=== PATIENT | female | born 1950 | race African-American/Black ===

== ENCOUNTER 2019-01-09 08:37 | Inpatient (IN) ==
[2019-01-09] MEDS ORDERED: SODIUM CHLORIDE 0.9% 1,000 ML IV STA (09:21)
[2019-01-09] MEDS ORDERED: VANCOMYCIN INJ 1,000 MG in SODIUM CHLORIDE 0.9% 250 ML IV STA (09:39)
[2019-01-09 10:54] LABS: Basophils # 0.1 10*3/uL (0.0-0.2); Basophils % 0.6 % (0.0-0.8); Eosinophils % 0.4 % (0.00-10.9); Hematocrit 34.5 VOL% (35.7-47.0); Hemoglobin 10.7 GM/DL (12.0-16.0); Immature Granulocytes % 1.2 %; Lymphocytes # 1.1 10*3/uL (1.4-4.0); Lymphocytes % 13.1 % (21.3-54.2); Mean Corpuscular Hemoglobin 27 PG (27-34); Mean Corpuscular Volume 86.7 FL (87-102); Mean Platelet Volume 8.6 FL (9.6-12.0); Monocytes # 0.9 10*3/uL (0.11-0.8); Monocytes % 10.8 % (1.7-12.7); Neutrophils # 6.2 10*3/uL (1.4-7.4); Neutrophils % 73.9 % (38.7-73.9); Platelet Count 481 T/CUMM (130-400); Red Blood Count 3.98 MC/CUMM (3.8-5.5); Red Cell Distribution Width 14.6 % (9.3-17.3); White Blood Count 8.4 T/CUMM (4-12)
[2019-01-09 11:08] LABS: INR 1.1; PT Patient Result 11.4 SECS; Partial Thromboplastin Time 30.1 SECS (0-40)
[2019-01-09 11:21] LABS: Apearance,Urine CLEAR (Clear); Bilirubin,Urine Negative (Negative); Blood, Urine Negative (Negative); Glucose,Urine (UA) >=500 mg/dL (Negative); Ketones,Urine 5 mg/dL (Negative); Nitrite,Urine Negative (Negative); Protein,Urine Negative; RBC,Urine 1 /HPF (0-4); Urine Color Yellow (Yellow); Urine Urobilinogen < 2.0 EU/DL (0.2-1.0); WBC,Urine <1 /HPF (0-6)
[2019-01-09 11:44] LABS: Barbiturates Screen,Urine Negative (Negative); Benzodiazepines Screen,Urine Negative (Negative); Cannabinoid Screen,Urine Negative (Negative); Opiate Screen,Urine Negative (Negative); Phencyclidine Screen,Urine Negative (Negative)
[2019-01-09 11:58] LABS: Sedimentation Rate-Westergren 15 MM/HR (0-30)
[2019-01-09 12:07] LABS: Alanine Aminotransferase 24 U/L (13-56); Albumin 2.1 G/DL (3.4-5.0); Alkaline Phosphatase 99 U/L (45-117); Aspartate Amino Transferase 45 U/L (0-37); Bilirubin,Total < 0.39 MG/DL (0.2-1.0); Blood Urea Nitrogen 15 MG/DL (7-18); Calcium 9.4 MG/DL (8.5-10.1); Glucose 131 MG/DL (74-106); Osmolality,Calculated 266.5 MOS/KG (273-304); Potassium 4.2 MMOL/L (3.5-5.1); Sodium 132 MMOL/L (136-145); Total Protein 9.6 G/DL (6.4-8.3); Troponin I < 0.015 NG/ML (0.00-0.045)
[2019-01-09] MEDS ORDERED: DEXTROSE 50% 25 GM/50 ML VIAL IV PRN (12:18)
[2019-01-09] MEDS ORDERED: GLUCAGON 1 MG VIAL IM PRN ×2 (12:18→15:06)
[2019-01-09] MEDS ORDERED: cefTRIAXone 1,000 MG in SYRINGE 1 EACH IV SCH (14:30)
[2019-01-09] MEDS ORDERED: ACETAMINOPHEN 325 MG TABLET PO PRN (15:06)
[2019-01-09] MEDS ORDERED: MORPHINE 4 MG/1 ML VIAL IV PRN (15:06)
[2019-01-09] MEDS ORDERED: DEXTROSE 50% 25 GM/50 ML SYRINGE IV PRN (15:06)
[2019-01-09] MEDS ORDERED: ZALEPLON 5 MG CAPSULE PO PRN (15:06)
[2019-01-09] MEDS: SODIUM CHLORIDE 0.9% 1,000 ML IV SCH (15:21)
[2019-01-09] MEDS: PIPERACILLIN/TAZOBACTAM 3,375 MG in SODIUM CHLORIDE 0.9% 100 ML IV SCH (15:42)
[2019-01-09] MEDS: INSULIN LISPRO 100 UNIT/ML SUBCUT SCH ×2 (15:43→22:46)
[2019-01-09] MEDS: INSULIN REGULAR 100 UNIT/ML SUBCUT SCH ×2 (15:44→21:39)
[2019-01-09 16:18] LABS: Troponin I < 0.015 NG/ML (0.00-0.045)
[2019-01-09] MEDS: ENOXAPARIN 40 MG/0.4 ML SYRINGE SUBCUT SCH (21:39)
[2019-01-09] MEDS: VANCOMYCIN INJ 1,250 MG in SODIUM CHLORIDE 0.9% 250 ML IV SCH (21:39)
[2019-01-09] MEDS: DIVALPROEX 500 MG TABLET PO SCH (21:39)
[2019-01-09] MEDS: HydrOXYzine PAMOATE 50 MG CAPSULE PO SCH (21:39)
[2019-01-09] MEDS ORDERED: VANCOMYCIN INJ 1,000 MG in SODIUM CHLORIDE 0.9% 250 ML IV SCH (22:30)
[2019-01-10] MEDS: PIPERACILLIN/TAZOBACTAM 3,375 MG in SODIUM CHLORIDE 0.9% 100 ML IV SCH ×3 (00:05→21:24)
[2019-01-10 05:19] LABS: Basophils % 0.5 % (0.0-0.8); Eosinophils % 0.5 % (0.00-10.9); Hematocrit 30.4 VOL% (35.7-47.0); Hemoglobin 9.4 GM/DL (12.0-16.0); Immature Granulocytes % 0.8 %; Immature Granulocytes Absolute 0.06 #; Lymphocytes # 1.2 10*3/uL (1.4-4.0); Mean Corpuscular HGB Conc 30.9 GM/DL (32-36); Mean Corpuscular Hemoglobin 26 PG (27-34); Mean Corpuscular Volume 85.4 FL (87-102); Mean Platelet Volume 8.8 FL (9.6-12.0); Monocytes # 0.9 10*3/uL (0.11-0.8); Monocytes % 12.3 % (1.7-12.7); Neutrophils # 5.3 10*3/uL (1.4-7.4); Neutrophils % 69.9 % (38.7-73.9); Platelet Count 412 T/CUMM (130-400); Red Blood Count 3.56 MC/CUMM (3.8-5.5); Red Cell Distribution Width 14.5 % (9.3-17.3); White Blood Count 7.5 T/CUMM (4-12)
[2019-01-10 06:00] LABS: Alanine Aminotransferase 23 U/L (13-56); Albumin 1.5 G/DL (3.4-5.0); Alkaline Phosphatase 89 U/L (45-117); Aspartate Amino Transferase 34 U/L (0-37); Blood Urea Nitrogen 11 MG/DL (7-18); Calcium 8.9 MG/DL (8.5-10.1); Cholesterol 123 MG/DL (50-200); Glucose 128 MG/DL (74-106); HDL Cholesterol 28 MG/DL (40-60); Osmolality,Calculated 270.1 MOS/KG (273-304); Potassium 3.8 MMOL/L (3.5-5.1); Risk Ratio 4.39; Sodium 135 MMOL/L (136-145); Triglycerides 106 MG/DL (2-150); Troponin I < 0.015 NG/ML (0.00-0.045); VLDL CHOLESTEROL 21.2 MG/DL
[2019-01-10] MEDS ORDERED: LEVOTHYROXINE 100 MCG TABLET PO SCH (06:30)
[2019-01-10] MEDS: INSULIN REGULAR 100 UNIT/ML SUBCUT SCH ×4 (07:38→22:48)
[2019-01-10] MEDS ORDERED: LISINOPRIL 20 MG TABLET PO SCH (09:00)
[2019-01-10] MEDS ORDERED: PROPOFOL 200 MG/20 ML VIAL IV ONE (10:57)
[2019-01-10] MEDS ORDERED: fentaNYL 100 MCG/2 ML VIAL ONE (10:57)
[2019-01-10] MEDS ORDERED: SEVOFLURANE 1 UNIT/15 MINUTE INH ONE (10:57)
[2019-01-10] MEDS ORDERED: ONDANSETRON 4 MG/2 ML VIAL ONE (10:57)
[2019-01-10] MEDS ORDERED: PHENYLEPHRINE 1 MG/10 ML SYRINGE IV ONE (10:58)
[2019-01-10] MEDS ORDERED: SODIUM CHLORIDE 0.9% 1,000 ML IV ONE (10:58)
[2019-01-10] MEDS ORDERED: HYDROmorphone 2 MG/1 ML VIAL IV PRN (11:14)
[2019-01-10] MEDS ORDERED: ONDANSETRON 4 MG/2 ML VIAL IV PRN (11:14)
[2019-01-10] MEDS ORDERED: LACTATED RINGERS 1,000 ML IV SCH (11:30)
[2019-01-10] MEDS: VANCOMYCIN INJ 1,250 MG in SODIUM CHLORIDE 0.9% 250 ML IV SCH ×2 (12:47→22:55)
[2019-01-10] MEDS: PANTOPRAZOLE 40 MG TABLET PO SCH (12:59)
[2019-01-10] MEDS: BISACODYL 5 MG TABLET PO SCH (12:59)
[2019-01-10] MEDS: ASPIRIN EC 81 MG TABLET PO SCH (12:59)
[2019-01-10] MEDS: DIVALPROEX 500 MG TABLET PO SCH ×2 (12:59→21:24)
[2019-01-10] MEDS: SODIUM CHLORIDE 0.9% 1,000 ML IV SCH ×2 (18:17→22:52)
[2019-01-10] MEDS: ENOXAPARIN 40 MG/0.4 ML SYRINGE SUBCUT SCH (21:24)
[2019-01-10] MEDS: HydrOXYzine PAMOATE 50 MG CAPSULE PO SCH (21:24)
[2019-01-11 05:06] LABS: Basophils # 0.1 10*3/uL (0.0-0.2); Basophils % 0.6 % (0.0-0.8); Eosinophils # 0.2 10*3/uL (0.0-0.87); Eosinophils % 1.9 % (0.00-10.9); Hematocrit 27.9 VOL% (35.7-47.0); Hemoglobin 8.4 GM/DL (12.0-16.0); Immature Granulocytes % 0.8 %; Immature Granulocytes Absolute 0.06 #; Lymphocytes # 1.1 10*3/uL (1.4-4.0); Lymphocytes % 13.6 % (21.3-54.2); Mean Corpuscular HGB Conc 30.1 GM/DL (32-36); Mean Corpuscular Hemoglobin 27 PG (27-34); Mean Platelet Volume 8.6 FL (9.6-12.0); Monocytes # 1.1 10*3/uL (0.11-0.8); Monocytes % 13.3 % (1.7-12.7); Neutrophils # 5.5 10*3/uL (1.4-7.4); Neutrophils % 69.8 % (38.7-73.9); Platelet Count 365 T/CUMM (130-400); Red Blood Count 3.17 MC/CUMM (3.8-5.5); Red Cell Distribution Width 14.7 % (9.3-17.3); White Blood Count 7.9 T/CUMM (4-12)
[2019-01-11 05:33] LABS: Calcium 8.2 MG/DL (8.5-10.1); Osmolality,Calculated 273.5 MOS/KG (273-304); Potassium 3.7 MMOL/L (3.5-5.1)
[2019-01-11] MEDS: PIPERACILLIN/TAZOBACTAM 3,375 MG in SODIUM CHLORIDE 0.9% 100 ML IV SCH ×3 (05:47→21:22)
[2019-01-11] MEDS: LEVOTHYROXINE 125 MCG TABLET PO SCH (05:57)
[2019-01-11] MEDS ORDERED: TUBERCULIN SKIN TEST 0.1 ML SYRINGE INTRADERM ONE (09:10)
[2019-01-11] MEDS: VANCOMYCIN INJ 1,250 MG in SODIUM CHLORIDE 0.9% 250 ML IV SCH ×2 (09:39→20:14)
[2019-01-11] MEDS: ASPIRIN EC 81 MG TABLET PO SCH (09:40)
[2019-01-11] MEDS: INSULIN REGULAR 100 UNIT/ML SUBCUT SCH ×4 (09:41→20:46)
[2019-01-11] MEDS: BISACODYL 5 MG TABLET PO SCH (09:41)
[2019-01-11] MEDS: PANTOPRAZOLE 40 MG TABLET PO SCH (09:41)
[2019-01-11] MEDS: DIVALPROEX 500 MG TABLET PO SCH ×2 (09:41→20:14)
[2019-01-11] MEDS: CHLORHEXIDINE 4% SOLN 118 ML BOTTLE TOP SCH (13:04)
[2019-01-11] MEDS: SODIUM HYPOCHLORITE 0.25% IRRIG 473 ML BOTTLE TOP SCH (13:04)
[2019-01-11] MEDS: ZINC OXIDE PASTE 113 GM TUBE TOP SCH ×2 (15:42→20:15)
[2019-01-11 18:15] LABS: Hematocrit 26.9 VOL% (35.7-47.0); Hemoglobin 8.3 GM/DL (12.0-16.0)
[2019-01-11] MEDS: ENOXAPARIN 40 MG/0.4 ML SYRINGE SUBCUT SCH (20:13)
[2019-01-11] MEDS: HydrOXYzine PAMOATE 50 MG CAPSULE PO SCH (20:13)
[2019-01-12] MEDS: SODIUM CHLORIDE 0.9% 1,000 ML IV SCH ×2 (03:00→05:00)
[2019-01-12] MEDS: PIPERACILLIN/TAZOBACTAM 3,375 MG in SODIUM CHLORIDE 0.9% 100 ML IV SCH (04:30)
[2019-01-12 05:34] LABS: Basophils # 0.1 10*3/uL (0.0-0.2); Basophils % 0.9 % (0.0-0.8); Eosinophils # 0.2 10*3/uL (0.0-0.87); Eosinophils % 2.5 % (0.00-10.9); Hematocrit 26.4 VOL% (35.7-47.0); Hemoglobin 8.1 GM/DL (12.0-16.0); Immature Granulocytes % 0.9 %; Immature Granulocytes Absolute 0.06 #; Lymphocytes # 1.2 10*3/uL (1.4-4.0); Lymphocytes % 17.6 % (21.3-54.2); Mean Corpuscular HGB Conc 30.7 GM/DL (32-36); Mean Corpuscular Hemoglobin 27 PG (27-34); Mean Corpuscular Volume 87.1 FL (87-102); Mean Platelet Volume 8.5 FL (9.6-12.0); Monocytes # 0.9 10*3/uL (0.11-0.8); Monocytes % 12.3 % (1.7-12.7); Neutrophils # 4.5 10*3/uL (1.4-7.4); Neutrophils % 65.8 % (38.7-73.9); Platelet Count 360 T/CUMM (130-400); Red Blood Count 3.03 MC/CUMM (3.8-5.5); Red Cell Distribution Width 14.6 % (9.3-17.3); White Blood Count 6.9 T/CUMM (4-12)
[2019-01-12 05:58] LABS: Calcium 8.3 MG/DL (8.5-10.1); Osmolality,Calculated 277.4 MOS/KG (273-304); Potassium 3.4 MMOL/L (3.5-5.1)
[2019-01-12] MEDS: LEVOTHYROXINE 125 MCG TABLET PO SCH (06:06)
[2019-01-12] MEDS: INSULIN REGULAR 100 UNIT/ML SUBCUT SCH ×3 (07:52→17:08)
[2019-01-12] MEDS ORDERED: SODIUM CHLORIDE 0.9% 1,000 ML IV PRN (08:57)
[2019-01-12] MEDS: cephALEXin 500 MG CAPSULE PO SCH ×2 (09:30→14:26)
[2019-01-12] MEDS: BISACODYL 5 MG TABLET PO SCH (09:30)
[2019-01-12] MEDS: PANTOPRAZOLE 40 MG TABLET PO SCH (09:30)
[2019-01-12] MEDS: DIVALPROEX 500 MG TABLET PO SCH (09:30)
[2019-01-12] MEDS: ASPIRIN EC 81 MG TABLET PO SCH (09:30)
[2019-01-12] MEDS ORDERED: LISINOPRIL 20 MG TABLET PO SCH (10:00)
[2019-01-12] MEDS ORDERED: POTASSIUM CHLORIDE 20 MEQ TABLET PO ONE (10:00)
[2019-01-12] MEDS: SODIUM HYPOCHLORITE 0.25% IRRIG 473 ML BOTTLE TOP SCH (10:26)
[2019-01-12] MEDS: ZINC OXIDE PASTE 113 GM TUBE TOP SCH (10:26)
[2019-01-12] MEDS: CHLORHEXIDINE 4% SOLN 118 ML BOTTLE TOP SCH (10:26)
[2019-01-12 15:42] VITALS: BP 155/77
== END 2019-01-12 18:04 | DRG 617 ==
LOC: EDBD → EDUNIT# → N.ED 08:37 → N.EDINP 12:36 → N.2E 15:06
PROVIDERS: ADMIT Internal Medicine; ATTEND Internal Medicine

== ENCOUNTER 2019-02-20 17:32 | Inpatient (IN) ==
[2019-02-20] MEDS ORDERED: ALBUTEROL/IPRATROPIUM 3 ML NEB RESP TX STA (18:06)
[2019-02-20] MEDS ORDERED: FUROSEMIDE 40 MG/4 ML VIAL IV STA (18:06)
[2019-02-20 18:46] LABS: Basophils # 0.1 10*3/uL (0.0-0.2); Basophils % 0.8 % (0.0-0.8); Hematocrit 36.3 VOL% (35.7-47.0); Hemoglobin 11.1 GM/DL (12.0-16.0); Immature Granulocytes % 4.5 %; Immature Granulocytes Absolute 0.35 #; Lymphocytes # 0.7 10*3/uL (1.4-4.0); Lymphocytes % 8.4 % (21.3-54.2); Mean Corpuscular HGB Conc 30.6 GM/DL (32-36); Mean Corpuscular Volume 86.6 FL (87-102); Mean Platelet Volume 8.8 FL (9.6-12.0); Monocytes % 5.6 % (1.7-12.7); Neutrophils % 80.7 % (38.7-73.9); Platelet Count 571 T/CUMM (130-400); Red Blood Count 4.19 MC/CUMM (3.8-5.5); Red Cell Distribution Width 19.5 % (9.3-17.3); White Blood Count 7.7 T/CUMM (4-12)
[2019-02-20 18:55] LABS: PT Patient Result 11.3 SECS
[2019-02-20 18:58] LABS: Apearance,Urine CLEAR (Clear); Bilirubin,Urine Negative (Negative); Blood, Urine Small mg/dL (Negative); Glucose,Urine (UA) >=500 mg/dL (Negative); Hyaline Casts,Urine 1 /LPF (0-3); Ketones,Urine 20 mg/dL (Negative); Nitrite,Urine Negative (Negative); Protein,Urine Negative; RBC,Urine 21 /HPF (0-4); Squamous Epithelial Cell,Urine Occasional /HPF (0-10); Urine Color Yellow (Yellow); Urine Specific Gravity 1.028 (1.001-1.035); Urine Urobilinogen < 2.0 EU/DL (0.2-1.0); WBC,Urine 3 /HPF (0-6)
[2019-02-20 19:06] LABS: Barbiturates Screen,Urine Negative (Negative); Benzodiazepines Screen,Urine Negative (Negative); Cannabinoid Screen,Urine Negative (Negative); Opiate Screen,Urine Negative (Negative); Phencyclidine Screen,Urine Negative (Negative)
[2019-02-20 19:15] LABS: Alanine Aminotransferase 12 U/L (13-56); Albumin 1.7 G/DL (3.4-5.0); Alkaline Phosphatase 220 U/L (45-117); Aspartate Amino Transferase 24 U/L (0-37); Blood Urea Nitrogen 18 MG/DL (7-18); CKMB % 2.6 %; Calcium 9.1 MG/DL (8.5-10.1); Glucose 235 MG/DL (74-106); Osmolality,Calculated 282.8 MOS/KG (273-304); Prolactin 9.3 NG/ML; Total Protein 8.8 G/DL (6.4-8.3); Troponin I < 0.015 NG/ML (0.00-0.045)
[2019-02-20] MEDS: PIPERACILLIN/TAZOBACTAM 3,375 MG in SODIUM CHLORIDE 0.9% 100 ML IV SCH (19:50)
[2019-02-20 20:03] LABS: Sedimentation Rate-Westergren 13 MM/HR (0-30)
[2019-02-20 20:12] LABS: Lymphocytes 16 % (20-55); Segmented Neutrophils 80 % (50-85); Total Cells Counted 100
[2019-02-20 20:15] LABS: Platelet Estimate Adequate; Platelet Satellitism Few
[2019-02-20] MEDS ORDERED: GLUCAGON 1 MG VIAL IM PRN (20:39)
[2019-02-20] MEDS ORDERED: DEXTROSE 50% 25 GM/50 ML VIAL IV PRN (20:39)
[2019-02-20 20:42] LABS: Allen Test Positive
[2019-02-20 20:44] LABS: ABG Base Excess 1.2 MMOL/L (-2.5-2.5); ABG HCO3 25.2 MMOL/L (20-26); ABG PCO2 33.3 MM HG (35-48); ABG PH 7.472 (7.35-7.45); ABG PO2 49.7 MM HG (80-95)
[2019-02-20] MEDS ORDERED: LACTULOSE 20 GM/30 ML UDCUP PO PRN (20:44)
[2019-02-20] MEDS ORDERED: NICOTINE 21 MG/24 HR PATCH TRANSDERM PRN (20:44)
[2019-02-20] MEDS ORDERED: ONDANSETRON 4 MG/2 ML VIAL IV PRN (20:44)
[2019-02-20] MEDS ORDERED: LACTATED RINGERS 1,000 ML IV ONE (20:44)
[2019-02-20] MEDS ORDERED: guaiFENesin/DM ER 600-30 MG TABLET PO PRN (20:44)
[2019-02-20] MEDS ORDERED: MORPHINE 4 MG/1 ML VIAL IV PRN (20:44)
[2019-02-20] MEDS ORDERED: diphenhydrAMINE CAP 25 MG CAPSULE PO PRN (20:44)
[2019-02-20] MEDS ORDERED: VANCOMYCIN INJ 1,000 MG in SODIUM CHLORIDE 0.9% 250 ML IV SCH (21:00)
[2019-02-21] MEDS: VANCOMYCIN INJ 1,000 MG in SODIUM CHLORIDE 0.9% 250 ML IV SCH ×2 (00:20→11:09)
[2019-02-21] MEDS: INSULIN REGULAR 100 UNIT/ML SUBCUT SCH ×4 (00:24→17:53)
[2019-02-21] MEDS: ALBUTEROL/IPRATROPIUM 3 ML NEB RESP TX SCH ×4 (01:06→20:44)
[2019-02-21] MEDS ORDERED: ALBUTEROL/IPRATROPIUM 3 ML NEB RESP TX ONE (01:56)
[2019-02-21] MEDS ORDERED: methylPREDNISolone SOD SUC 125 MG/2 ML VIAL IV ONE (01:57)
[2019-02-21 03:58] LABS: ABG HCO3 24.8 MMOL/L (20-26); ABG PH 7.456 (7.35-7.45); ABG PO2 63.9 MM HG (80-95); ABG TCO2 25.9 MMOL/L (23-27); Allen Test Positive; Pt O2 Delivery Device Other
[2019-02-21] MEDS ORDERED: PIPERACILLIN/TAZOBACTAM 3,375 MG in SODIUM CHLORIDE 0.9% 100 ML IV SCH (04:00)
[2019-02-21] MEDS: PIPERACILLIN/TAZOBACTAM 3,375 MG in SODIUM CHLORIDE 0.9% 100 ML IV SCH ×3 (04:43→20:43)
[2019-02-21 05:30] LABS: Basophils # 0.1 10*3/uL (0.0-0.2); Hematocrit 28.7 VOL% (35.7-47.0); Hemoglobin 9.2 GM/DL (12.0-16.0); Immature Granulocytes % 1.3 %; Immature Granulocytes Absolute 0.09 #; Lymphocytes # 0.6 10*3/uL (1.4-4.0); Lymphocytes % 8.6 % (21.3-54.2); Mean Corpuscular HGB Conc 32.1 GM/DL (32-36); Mean Corpuscular Volume 84.7 FL (87-102); Mean Platelet Volume 9.1 FL (9.6-12.0); Monocytes % 6.2 % (1.7-12.7); Neutrophils % 82.9 % (38.7-73.9); Platelet Count 480 T/CUMM (130-400); Red Blood Count 3.39 MC/CUMM (3.8-5.5); Red Cell Distribution Width 19.1 % (9.3-17.3); White Blood Count 6.8 T/CUMM (4-12)
[2019-02-21 05:51] LABS: Albumin 1.2 G/DL (3.4-5.0); Bilirubin,Total 0.5 MG/DL (0.2-1.0); Calcium 8.8 MG/DL (8.5-10.1); Osmolality,Calculated 283.3 MOS/KG (273-304); Total Protein 7.2 G/DL (6.4-8.3)
[2019-02-21 06:14] LABS: Anisocytosis 2+; Hypochromasia 1+; Lymphocytes 11 % (20-55); Segmented Neutrophils 83 % (50-85); Total Cells Counted 100
[2019-02-21 06:15] LABS: Burr Cells 1+; Microcytosis 1+; Ovalocytes Slight; Platelet Estimate Increased
[2019-02-21] MEDS: LEVOTHYROXINE 125 MCG TABLET PO SCH (06:24)
[2019-02-21] MEDS ORDERED: PANTOPRAZOLE 40 MG TABLET PO SCH (09:00)
[2019-02-21] MEDS: PANTOPRAZOLE 40 MG VIAL IV SCH (09:35)
[2019-02-21 09:37] LABS: ABG Base Excess -3.8 MMOL/L (-2.5-2.5); ABG HCO3 21.1 MMOL/L (20-26); ABG Oxygen Saturation 92.5 % (95-100); ABG PCO2 29.5 MM HG (35-48); ABG PH 7.431 (7.35-7.45); ABG PO2 68.7 MM HG (80-95); ABG TCO2 18.1 MMOL/L (23-27)
[2019-02-21] MEDS: SODIUM CHLORIDE 0.9% 1,000 ML IV SCH ×3 (11:09→20:46)
[2019-02-21] MEDS: ENOXAPARIN 40 MG/0.4 ML SYRINGE SUBCUT SCH (14:04)
[2019-02-21] MEDS: methylPREDNISolone SOD SUC 40 MG/1 ML VIAL IV SCH ×2 (14:04→20:53)
[2019-02-22] MEDS: INSULIN REGULAR 100 UNIT/ML SUBCUT SCH ×4 (00:40→17:41)
[2019-02-22] MEDS: VANCOMYCIN INJ 1,000 MG in SODIUM CHLORIDE 0.9% 250 ML IV SCH (00:59)
[2019-02-22] MEDS: ALBUTEROL/IPRATROPIUM 3 ML NEB RESP TX SCH ×4 (01:53→19:09)
[2019-02-22] MEDS: PIPERACILLIN/TAZOBACTAM 3,375 MG in SODIUM CHLORIDE 0.9% 100 ML IV SCH ×2 (04:09→16:46)
[2019-02-22] MEDS: methylPREDNISolone SOD SUC 40 MG/1 ML VIAL IV SCH ×3 (04:10→21:29)
[2019-02-22 05:29] LABS: Calcium 9.1 MG/DL (8.5-10.1); Osmolality,Calculated 301.1 MOS/KG (273-304)
[2019-02-22 05:32] LABS: Basophils # 0.1 10*3/uL (0.0-0.2); Basophils % 0.8 % (0.0-0.8); Hematocrit 25.8 VOL% (35.7-47.0); Hemoglobin 7.8 GM/DL (12.0-16.0); Immature Granulocytes % 4.3 %; Lymphocytes # 1.1 10*3/uL (1.4-4.0); Lymphocytes % 7.8 % (21.3-54.2); Mean Corpuscular HGB Conc 30.2 GM/DL (32-36); Mean Corpuscular Volume 88.7 FL (87-102); Mean Platelet Volume 8.9 FL (9.6-12.0); Monocytes % 6.2 % (1.7-12.7); Neutrophils % 80.9 % (38.7-73.9); Platelet Count 517 T/CUMM (130-400); Red Blood Count 2.91 MC/CUMM (3.8-5.5); Red Cell Distribution Width 20.7 % (9.3-17.3); White Blood Count 13.8 T/CUMM (4-12)
[2019-02-22 06:10] LABS: Band Neutrophils 2 % (0-10); Hypochromasia 1+; Lymphocytes 6 % (20-55); Myelocytes 3 %; Platelet Estimate Adequate; Segmented Neutrophils 85 % (50-85); Total Cells Counted 100
[2019-02-22 06:11] LABS: Microcytosis Slight
[2019-02-22] MEDS: LEVOTHYROXINE 125 MCG TABLET PO SCH (06:30)
[2019-02-22] MEDS: levETIRAcetam 500 MG TABLET PO SCH ×2 (09:13→21:29)
[2019-02-22] MEDS: ASPIRIN EC 81 MG TABLET PO SCH (09:14)
[2019-02-22] MEDS: POTASSIUM CHLORIDE RIDER 10 MEQ in PREMIX 1 EACH IV PRN ×3 (09:14→21:34)
[2019-02-22] MEDS: PANTOPRAZOLE 40 MG VIAL IV SCH (09:14)
[2019-02-22] MEDS: LISINOPRIL 20 MG TABLET PO SCH (09:14)
[2019-02-22 11:04] LABS: Basophils % 0.1 % (0.0-0.8); Immature Granulocytes % 8.3 %; Immature Granulocytes Absolute 1.35 #; Lymphocytes # 1.1 10*3/uL (1.4-4.0); Lymphocytes % 6.8 % (21.3-54.2); Mean Corpuscular HGB Conc 27.9 GM/DL (32-36); Mean Corpuscular Volume 95.7 FL (87-102); Mean Platelet Volume 9.3 FL (9.6-12.0); Monocytes % 6.6 % (1.7-12.7); Neutrophils % 78.2 % (38.7-73.9); Platelet Count 430 T/CUMM (130-400); Red Blood Count 3.03 MC/CUMM (3.8-5.5); Red Cell Distribution Width 21.5 % (9.3-17.3); White Blood Count 16.2 T/CUMM (4-12)
[2019-02-22 11:06] LABS: Hemoglobin 8.1 GM/DL (12.0-16.0)
[2019-02-22 11:36] LABS: Band Neutrophils 4 % (0-10); Lymphocytes 6 % (20-55); Myelocytes 1 %; Segmented Neutrophils 85 % (50-85); Total Cells Counted 100
[2019-02-22 11:37] LABS: Hypochromasia 1+; Platelet Estimate Adequate
[2019-02-22 11:38] LABS: Folate 15.2 NG/ML (5.4-24.0); Microcytosis Slight; Vitamin B12 1321 PG/ML (211-911)
[2019-02-22 12:35] LABS: Sedimentation Rate-Westergren 87 MM/HR (0-30)
[2019-02-22] MEDS: ENOXAPARIN 40 MG/0.4 ML SYRINGE SUBCUT SCH (13:31)
[2019-02-22] MEDS: ACETAMINOPHEN 325 MG TABLET PO PRN (21:35)
[2019-02-23] MEDS: ALBUTEROL/IPRATROPIUM 3 ML NEB RESP TX SCH ×4 (00:05→20:29)
[2019-02-23] MEDS: PIPERACILLIN/TAZOBACTAM 3,375 MG in SODIUM CHLORIDE 0.9% 100 ML IV SCH ×3 (00:22→16:49)
[2019-02-23] MEDS: POTASSIUM CHLORIDE RIDER 10 MEQ in PREMIX 1 EACH IV PRN (00:27)
[2019-02-23] MEDS: INSULIN REGULAR 100 UNIT/ML SUBCUT SCH ×4 (01:33→18:13)
[2019-02-23] MEDS: methylPREDNISolone SOD SUC 40 MG/1 ML VIAL IV SCH ×2 (04:19→21:51)
[2019-02-23] MEDS: LEVOTHYROXINE 125 MCG TABLET PO SCH (05:54)
[2019-02-23 07:30] LABS: Basophils # 0.1 10*3/uL (0.0-0.2); Basophils % 0.7 % (0.0-0.8); Hematocrit 26.9 VOL% (35.7-47.0); Hemoglobin 7.9 GM/DL (12.0-16.0); Immature Granulocytes % 8.9 %; Immature Granulocytes Absolute 1.68 #; Lymphocytes % 5.5 % (21.3-54.2); Mean Corpuscular HGB Conc 29.4 GM/DL (32-36); Mean Corpuscular Volume 91.5 FL (87-102); Mean Platelet Volume 8.7 FL (9.6-12.0); Monocytes % 4.8 % (1.7-12.7); NRBC # 0.02 10*3/uL; Neutrophils % 80.1 % (38.7-73.9); Platelet Count 486 T/CUMM (130-400); Red Blood Count 2.94 MC/CUMM (3.8-5.5); Red Cell Distribution Width 22.4 % (9.3-17.3); White Blood Count 18.9 T/CUMM (4-12)
[2019-02-23 07:44] LABS: Calcium 8.5 MG/DL (8.5-10.1); Osmolality,Calculated 323.9 MOS/KG (273-304)
[2019-02-23 08:18] LABS: Band Neutrophils 10 % (0-10); Lymphocytes 5 % (20-55); Myelocytes 4 %; Platelet Estimate Adequate; Segmented Neutrophils 77 % (50-85); Total Cells Counted 100
[2019-02-23 08:19] LABS: Hypochromasia 1+; Microcytosis Slight
[2019-02-23 09:40] LABS: Hemoglobin A1 (Alkaline) 97.7 % (96.5-98.5); Hemoglobin A2 (Alkaline) 2.3 % (1.5-3.5)
[2019-02-23] MEDS: SODIUM CHLORIDE 0.9% 1,000 ML IV SCH ×2 (09:55→09:56)
[2019-02-23] MEDS: ASPIRIN EC 81 MG TABLET PO SCH (10:03)
[2019-02-23] MEDS: LISINOPRIL 20 MG TABLET PO SCH (10:03)
[2019-02-23] MEDS: PANTOPRAZOLE 40 MG VIAL IV SCH (10:12)
[2019-02-23] MEDS: ENOXAPARIN 40 MG/0.4 ML SYRINGE SUBCUT SCH (12:47)
[2019-02-23 22:03] LABS: Allen Test Positive; Pt O2 Delivery Device Other
[2019-02-23 22:04] LABS: ABG Base Excess -16.6 MMOL/L (-2.5-2.5); ABG HCO3 7.6 MMOL/L (20-26); ABG Oxygen Saturation 94.6 % (95-100); ABG PH 7.324 (7.35-7.45); ABG PO2 81.7 MM HG (80-95)
[2019-02-23 22:07] LABS: ABG PCO2 14.9 MM HG (35-48)
[2019-02-24] MEDS: INSULIN REGULAR 100 UNIT/ML SUBCUT SCH ×5 (00:28→23:42)
[2019-02-24] MEDS: PIPERACILLIN/TAZOBACTAM 3,375 MG in SODIUM CHLORIDE 0.9% 100 ML IV SCH ×2 (00:47→09:31)
[2019-02-24] MEDS: ALBUTEROL/IPRATROPIUM 3 ML NEB RESP TX SCH ×4 (01:35→19:37)
[2019-02-24 03:37] LABS: ABG Base Excess -14.4 MMOL/L (-2.5-2.5); ABG HCO3 9.8 MMOL/L (20-26); ABG Oxygen Saturation 95.7 % (95-100); ABG PH 7.341 (7.35-7.45); ABG PO2 87.4 MM HG (80-95); ABG TCO2 10.3 MMOL/L (23-27); Allen Test Positive; Pt O2 Delivery Device Other
[2019-02-24 03:38] LABS: ABG PCO2 18.5 MM HG (35-48)
[2019-02-24] MEDS ORDERED: ACETAMINOPHEN 650 MG SUPP RECTAL ONE (04:49)
[2019-02-24 05:08] LABS: Basophils # 0.1 10*3/uL (0.0-0.2); Basophils % 0.8 % (0.0-0.8); Hematocrit 26.3 VOL% (35.7-47.0); Hemoglobin 7.9 GM/DL (12.0-16.0); Immature Granulocytes % 8.5 %; Immature Granulocytes Absolute 1.48 #; Lymphocytes % 5.7 % (21.3-54.2); Mean Corpuscular Volume 90.4 FL (87-102); Mean Platelet Volume 8.7 FL (9.6-12.0); Monocytes % 5.8 % (1.7-12.7); NRBC # 0.02 10*3/uL; Neutrophils % 79.2 % (38.7-73.9); Platelet Count 469 T/CUMM (130-400); Red Blood Count 2.91 MC/CUMM (3.8-5.5); Red Cell Distribution Width 23.6 % (9.3-17.3); White Blood Count 17.4 T/CUMM (4-12)
[2019-02-24 05:33] LABS: Albumin 1.5 G/DL (3.4-5.0); Anisocytosis 1+; Band Neutrophils 11 % (0-10); Bilirubin,Total 0.4 MG/DL (0.2-1.0); Calcium 8.4 MG/DL (8.5-10.1); Lymphocytes 6 % (20-55); Osmolality,Calculated 339.6 MOS/KG (273-304); Platelet Estimate Normal; Segmented Neutrophils 81 % (50-85); Total Cells Counted 100
[2019-02-24 05:33] LABS: INR 1.1; PT Patient Result 11.9 SECS
[2019-02-24 05:34] LABS: Macrocytosis 1+; Target Cells Few
[2019-02-24] MEDS: LEVOTHYROXINE 125 MCG TABLET PO SCH (07:20)
[2019-02-24] MEDS ORDERED: LACTATED RINGERS 500 ML IV SCH (08:00)
[2019-02-24] MEDS ORDERED: SODIUM CHLORIDE 0.45% 1,000 ML IV ONE ×2 (08:29→08:30)
[2019-02-24 08:42] LABS: Albumin 1.3 G/DL (3.4-5.0); Bilirubin,Total 0.5 MG/DL (0.2-1.0); Calcium 8.8 MG/DL (8.5-10.1); Osmolality,Calculated 346.2 MOS/KG (273-304); Total Protein 6.5 G/DL (6.4-8.3)
[2019-02-24] MEDS ORDERED: SODIUM BICARB INJ 100 MEQ in DEXTROSE 5% 1,000 ML IV SCH ×2 (09:00→17:00)
[2019-02-24] MEDS: methylPREDNISolone SOD SUC 40 MG/1 ML VIAL IV SCH ×2 (09:30→21:00)
[2019-02-24] MEDS: PANTOPRAZOLE 40 MG VIAL IV SCH (09:30)
[2019-02-24] MEDS: LISINOPRIL 20 MG TABLET PO SCH (09:48)
[2019-02-24] MEDS: SODIUM CHLORIDE 0.45% 1,000 ML IV SCH (09:49)
[2019-02-24] MEDS: ASPIRIN EC 81 MG TABLET PO SCH (09:51)
[2019-02-24] MEDS: LEVOFLOXACIN INJ 750 MG in PREMIX 1 EACH IV SCH (12:45)
[2019-02-24 12:53] LABS: Calcium 8.2 MG/DL (8.5-10.1); Osmolality,Calculated 339.8 MOS/KG (273-304)
[2019-02-24] MEDS: POTASSIUM CHLORIDE RIDER 10 MEQ in PREMIX 1 EACH IV PRN ×3 (13:04→16:20)
[2019-02-24 16:58] LABS: Calcium 8.1 MG/DL (8.5-10.1); Osmolality,Calculated 338.9 MOS/KG (273-304)
[2019-02-24 20:45] LABS: Calcium 8.3 MG/DL (8.5-10.1); Osmolality,Calculated 340.8 MOS/KG (273-304)
[2019-02-24 20:48] LABS: Apearance,Urine Slightly Hazy (Clear); Bilirubin,Urine Negative (Negative); Blood, Urine Large mg/dL (Negative); Glucose,Urine (UA) >=500 mg/dL (Negative); Ketones,Urine 80 mg/dL (Negative); Nitrite,Urine Negative (Negative); Protein,Urine 30 MG/DL; RBC,Urine 716 /HPF (0-4); Squamous Epithelial Cell,Urine Occasional /HPF (0-10); Urine Color Yellow (Yellow); Urine Specific Gravity 1.029 (1.001-1.035); Urine Urobilinogen < 2.0 EU/DL (0.2-1.0); WBC,Urine 28 /HPF (0-6)
[2019-02-24] MEDS: SODIUM BICARB INJ 150 MEQ in DEXTROSE 5% 850 ML IV SCH (20:53)
[2019-02-25] MEDS: ALBUTEROL/IPRATROPIUM 3 ML NEB RESP TX SCH ×4 (00:29→19:05)
[2019-02-25 01:16] LABS: Calcium 8.1 MG/DL (8.5-10.1); Osmolality,Calculated 341.8 MOS/KG (273-304)
[2019-02-25] MEDS: POTASSIUM CHLORIDE RIDER 10 MEQ in PREMIX 1 EACH IV PRN ×4 (02:48→06:10)
[2019-02-25 04:44] LABS: Basophils % 0.3 % (0.0-0.8); Hematocrit 22.5 VOL% (35.7-47.0); Immature Granulocytes % 4.4 %; Immature Granulocytes Absolute 0.59 #; Lymphocytes # 1.3 10*3/uL (1.4-4.0); Lymphocytes % 9.3 % (21.3-54.2); Mean Corpuscular HGB Conc 31.1 GM/DL (32-36); Mean Corpuscular Volume 86.5 FL (87-102); Mean Platelet Volume 8.5 FL (9.6-12.0); Monocytes % 5.4 % (1.7-12.7); Neutrophils % 80.6 % (38.7-73.9); Platelet Count 351 T/CUMM (130-400); Red Cell Distribution Width 23.2 % (9.3-17.3); White Blood Count 13.5 T/CUMM (4-12)
[2019-02-25] MEDS: SODIUM BICARB INJ 150 MEQ in DEXTROSE 5% 850 ML IV SCH (05:04)
[2019-02-25] MEDS: INSULIN REGULAR 100 UNIT/ML SUBCUT SCH ×3 (05:19→18:32)
[2019-02-25 05:20] LABS: Band Neutrophils 1 % (0-10); Hypochromasia 1+; Lymphocytes 8 % (20-55); Platelet Estimate Adequate; Segmented Neutrophils 84 % (50-85); Total Cells Counted 100
[2019-02-25] MEDS: LEVOTHYROXINE 125 MCG TABLET PO SCH (05:20)
[2019-02-25 06:13] LABS: Alanine Aminotransferase 12 U/L (13-56); Albumin 1.2 G/DL (3.4-5.0); Alkaline Phosphatase 133 U/L (45-117); Aspartate Amino Transferase 17 U/L (0-37); Bilirubin,Total < 0.39 MG/DL (0.2-1.0); Blood Urea Nitrogen 30 MG/DL (7-18); Glucose 210 MG/DL (74-106); Osmolality,Calculated 338.8 MOS/KG (273-304); Total Protein 5.8 G/DL (6.4-8.3)
[2019-02-25 06:27] LABS: Calcium 7.9 MG/DL (8.5-10.1)
[2019-02-25 08:44] LABS: Calcium 8.1 MG/DL (8.5-10.1); Osmolality,Calculated 335.9 MOS/KG (273-304)
[2019-02-25] MEDS: DEXTROSE 5% 1,000 ML IV SCH ×2 (09:00→17:51)
[2019-02-25] MEDS: PANTOPRAZOLE 40 MG VIAL IV SCH (09:02)
[2019-02-25] MEDS: ENOXAPARIN 40 MG/0.4 ML SYRINGE SUBCUT SCH (09:22)
[2019-02-25] MEDS: ASPIRIN CHEW 81 MG TABLET PO SCH (09:23)
[2019-02-25] MEDS: LEVOFLOXACIN INJ 750 MG in PREMIX 1 EACH IV SCH (12:47)
[2019-02-25] MEDS ORDERED: SODIUM CHLORIDE 0.9% 1,000 ML IV PRN (15:14)
[2019-02-26] MEDS: ACETAMINOPHEN 325 MG TABLET PO PRN ×3 (00:45→08:54)
[2019-02-26] MEDS: ALBUTEROL/IPRATROPIUM 3 ML NEB RESP TX SCH ×4 (00:50→13:24)
[2019-02-26] MEDS: INSULIN REGULAR 100 UNIT/ML SUBCUT SCH ×5 (01:06→18:34)
[2019-02-26 01:38] LABS: Basophils % 0.5 % (0.0-0.8); Eosinophils % 0.5 % (0.00-10.9); Hematocrit 31.5 VOL% (35.7-47.0); Hemoglobin 9.9 GM/DL (12.0-16.0); Immature Granulocytes % 4.6 %; Immature Granulocytes Absolute 0.41 #; Lymphocytes # 1.4 10*3/uL (1.4-4.0); Lymphocytes % 15.4 % (21.3-54.2); Mean Corpuscular HGB Conc 31.4 GM/DL (32-36); Mean Platelet Volume 9.2 FL (9.6-12.0); Monocytes % 4.1 % (1.7-12.7); NRBC # 0.03 10*3/uL; Neutrophils % 74.9 % (38.7-73.9); Platelet Count 263 T/CUMM (130-400); Red Blood Count 3.54 MC/CUMM (3.8-5.5); Red Cell Distribution Width 21.2 % (9.3-17.3); White Blood Count 8.9 T/CUMM (4-12)
[2019-02-26 01:57] LABS: Calcium 7.7 MG/DL (8.5-10.1)
[2019-02-26 02:01] LABS: Band Neutrophils 1 % (0-10); Lymphocytes 18 % (20-55); Metamyelocytes 1 %; Myelocytes 2 %; Promyelocytes 1 %; Segmented Neutrophils 72 % (50-85); Total Cells Counted 100
[2019-02-26 02:03] LABS: Anisocytosis 1+; Hypochromasia 1+; Microcytosis 1+; Platelet Estimate Normal; Target Cells 2+
[2019-02-26] MEDS: LEVOTHYROXINE 125 MCG TABLET PO SCH (06:16)
[2019-02-26] MEDS: PANTOPRAZOLE 40 MG VIAL IV SCH (08:54)
[2019-02-26] MEDS: ASPIRIN CHEW 81 MG TABLET PO SCH (08:55)
[2019-02-26] MEDS: ENOXAPARIN 40 MG/0.4 ML SYRINGE SUBCUT SCH (08:55)
[2019-02-26] MEDS ORDERED: FLUCONAZOLE INJ 200 MG in PREMIX 1 EACH IV SCH (10:00)
[2019-02-26] MEDS: LEVOFLOXACIN INJ 750 MG in PREMIX 1 EACH IV SCH (13:04)
[2019-02-26] MEDS: DEXTROSE 5% 1,000 ML IV SCH (18:24)
[2019-02-27] MEDS: INSULIN REGULAR 100 UNIT/ML SUBCUT SCH ×5 (00:41→23:55)
[2019-02-27] MEDS: ACETAMINOPHEN 650 MG SUPP RECTAL PRN (00:44)
[2019-02-27] MEDS: ALBUTEROL/IPRATROPIUM 3 ML NEB RESP TX SCH ×4 (01:22→19:32)
[2019-02-27 05:22] LABS: Basophils % 0.4 % (0.0-0.8); Eosinophils % 0.3 % (0.00-10.9); Hematocrit 31.7 VOL% (35.7-47.0); Hemoglobin 9.7 GM/DL (12.0-16.0); Immature Granulocytes % 1.7 %; Immature Granulocytes Absolute 0.16 #; Lymphocytes # 1.7 10*3/uL (1.4-4.0); Lymphocytes % 18.4 % (21.3-54.2); Mean Corpuscular HGB Conc 30.6 GM/DL (32-36); Mean Corpuscular Volume 90.6 FL (87-102); Mean Platelet Volume 9.7 FL (9.6-12.0); Monocytes % 3.7 % (1.7-12.7); Neutrophils % 75.5 % (38.7-73.9); Platelet Count 160 T/CUMM (130-400); Red Cell Distribution Width 20.6 % (9.3-17.3); White Blood Count 9.2 T/CUMM (4-12)
[2019-02-27 05:36] LABS: Calcium 7.6 MG/DL (8.5-10.1); Osmolality,Calculated 317.9 MOS/KG (273-304); Prealbumin 8.4 MG/DL (20-40)
[2019-02-27 06:05] LABS: Band Neutrophils 7 % (0-10); Lymphocytes 13 % (20-55); Metamyelocytes 2 %; Segmented Neutrophils 75 % (50-85); Total Cells Counted 100
[2019-02-27 06:06] LABS: Anisocytosis 1+; Hypochromasia 2+; Macrocytosis 1+; Platelet Estimate Normal; Target Cells 2+
[2019-02-27] MEDS: LEVOTHYROXINE 125 MCG TABLET PO SCH (06:14)
[2019-02-27] MEDS: ASPIRIN CHEW 81 MG TABLET PO SCH (09:29)
[2019-02-27] MEDS: PANTOPRAZOLE 40 MG VIAL IV SCH (09:29)
[2019-02-27] MEDS: ENOXAPARIN 40 MG/0.4 ML SYRINGE SUBCUT SCH (09:29)
[2019-02-27] MEDS ORDERED: POTASSIUM PHOSPHATE 30 MMOL in SODIUM CHLORIDE 0.9% 250 ML IV ONE (10:00)
[2019-02-27] MEDS: DEXTROSE 5% 1,000 ML IV SCH (10:25)
[2019-02-27] MEDS: LEVOFLOXACIN INJ 750 MG in PREMIX 1 EACH IV SCH (13:29)
[2019-02-27 23:39] LABS: Apearance,Urine CLEAR (Clear); Bilirubin,Urine Negative (Negative); Blood, Urine Negative (Negative); Glucose,Urine (UA) >=500 mg/dL (Negative); Ketones,Urine Negative (Negative); Nitrite,Urine Negative (Negative); Protein,Urine Negative; RBC,Urine 5 /HPF (0-4); Urine Color Yellow (Yellow); Urine Specific Gravity 1.026 (1.001-1.035); WBC,Urine 2 /HPF (0-6)
[2019-02-28] MEDS: ALBUTEROL/IPRATROPIUM 3 ML NEB RESP TX SCH ×4 (00:04→19:00)
[2019-02-28] MEDS: LEVOTHYROXINE 125 MCG TABLET PO SCH (05:30)
[2019-02-28] MEDS: INSULIN REGULAR 100 UNIT/ML SUBCUT SCH ×3 (05:31→18:32)
[2019-02-28 08:08] LABS: Calcium 8.1 MG/DL (8.5-10.1); Osmolality,Calculated 299.1 MOS/KG (273-304)
[2019-02-28] MEDS: DEXTROSE 5% 1,000 ML IV SCH (09:37)
[2019-02-28] MEDS: PANTOPRAZOLE 40 MG VIAL IV SCH (09:38)
[2019-02-28] MEDS: ENOXAPARIN 40 MG/0.4 ML SYRINGE SUBCUT SCH (09:40)
[2019-02-28] MEDS: ASPIRIN CHEW 81 MG TABLET PO SCH (09:41)
[2019-02-28] MEDS: ACETAMINOPHEN 325 MG TABLET PO PRN (09:44)
[2019-02-28] MEDS ORDERED: POTASSIUM PHOSPHATE 21 MMOL in SODIUM CHLORIDE 0.9% 250 ML IV ONE (10:00)
[2019-02-28] MEDS: LEVOFLOXACIN INJ 750 MG in PREMIX 1 EACH IV SCH (12:36)
[2019-03-01] MEDS: INSULIN REGULAR 100 UNIT/ML SUBCUT SCH ×4 (01:33→18:53)
[2019-03-01] MEDS: ALBUTEROL/IPRATROPIUM 3 ML NEB RESP TX SCH ×4 (01:42→19:30)
[2019-03-01 04:42] LABS: Basophils % 0.3 % (0.0-0.8); Eosinophils # 0.1 10*3/uL (0.0-0.87); Eosinophils % 0.8 % (0.00-10.9); Hematocrit 28.3 VOL% (35.7-47.0); Hemoglobin 8.9 GM/DL (12.0-16.0); Immature Granulocytes % 1.6 %; Immature Granulocytes Absolute 0.12 #; Lymphocytes # 1.4 10*3/uL (1.4-4.0); Mean Corpuscular HGB Conc 31.4 GM/DL (32-36); Monocytes % 6.6 % (1.7-12.7); Neutrophils % 71.7 % (38.7-73.9); Platelet Count 168 T/CUMM (130-400); Red Blood Count 3.18 MC/CUMM (3.8-5.5); Red Cell Distribution Width 19.1 % (9.3-17.3); White Blood Count 7.4 T/CUMM (4-12)
[2019-03-01 05:04] LABS: Hypochromasia 2+; Platelet Estimate Adequate; Target Cells Few
[2019-03-01] MEDS: DEXTROSE 5% 1,000 ML IV SCH (05:26)
[2019-03-01] MEDS: LEVOTHYROXINE 125 MCG TABLET PO SCH (05:27)
[2019-03-01] MEDS ORDERED: POTASSIUM PHOSPHATE 12 MMOL in SODIUM CHLORIDE 0.9% 100 ML IV ONE (09:30)
[2019-03-01] MEDS: ASPIRIN CHEW 81 MG TABLET PO SCH (09:55)
[2019-03-01] MEDS: PANTOPRAZOLE 40 MG VIAL IV SCH (09:56)
[2019-03-01] MEDS: ENOXAPARIN 40 MG/0.4 ML SYRINGE SUBCUT SCH (09:56)
[2019-03-01 11:52] LABS: Calcium 8.1 MG/DL (8.5-10.1); Osmolality,Calculated 278.5 MOS/KG (273-304)
[2019-03-01] MEDS: LEVOFLOXACIN INJ 750 MG in PREMIX 1 EACH IV SCH (15:09)
[2019-03-01] MEDS: ACETAMINOPHEN 650 MG SUPP RECTAL PRN (16:00)
[2019-03-01 19:03] LABS: Apearance,Urine CLEAR (Clear); Bilirubin,Urine Negative (Negative); Blood, Urine Small mg/dL (Negative); Glucose,Urine (UA) >=500 mg/dL (Negative); Ketones,Urine 5 mg/dL (Negative); Nitrite,Urine Negative (Negative); Protein,Urine Negative; RBC,Urine 4 /HPF (0-4); Squamous Epithelial Cell,Urine Occasional /HPF (0-10); Urine Color Straw (Yellow); Urine Specific Gravity 1.014 (1.001-1.035); WBC,Urine 3 /HPF (0-6)
[2019-03-02] MEDS: ALBUTEROL/IPRATROPIUM 3 ML NEB RESP TX SCH ×4 (00:52→19:24)
[2019-03-02] MEDS: INSULIN REGULAR 100 UNIT/ML SUBCUT SCH ×4 (00:59→18:15)
[2019-03-02 04:45] LABS: Basophils % 0.2 % (0.0-0.8); Eosinophils # 0.1 10*3/uL (0.0-0.87); Eosinophils % 0.6 % (0.00-10.9); Hematocrit 29.5 VOL% (35.7-47.0); Hemoglobin 9.4 GM/DL (12.0-16.0); Immature Granulocytes % 1.8 %; Immature Granulocytes Absolute 0.15 #; Lymphocytes # 1.2 10*3/uL (1.4-4.0); Mean Corpuscular HGB Conc 31.9 GM/DL (32-36); Monocytes % 9.2 % (1.7-12.7); Neutrophils % 73.2 % (38.7-73.9); Platelet Count 231 T/CUMM (130-400); Red Blood Count 3.39 MC/CUMM (3.8-5.5); Red Cell Distribution Width 18.8 % (9.3-17.3); White Blood Count 8.3 T/CUMM (4-12)
[2019-03-02 05:01] LABS: Calcium 8.6 MG/DL (8.5-10.1); Osmolality,Calculated 287.1 MOS/KG (273-304)
[2019-03-02] MEDS: LEVOTHYROXINE 125 MCG TABLET PO SCH (05:28)
[2019-03-02 05:47] LABS: Hypochromasia 1+; Microcytosis 1+; Platelet Estimate Adequate
[2019-03-02] MEDS ORDERED: LACTATED RINGERS 500 ML IV SCH (08:00)
[2019-03-02] MEDS: PANTOPRAZOLE 40 MG VIAL IV SCH (09:38)
[2019-03-02] MEDS: ASPIRIN CHEW 81 MG TABLET PO SCH (09:38)
[2019-03-02] MEDS ORDERED: POTASSIUM PHOSPHATE 12 MMOL in SODIUM CHLORIDE 0.9% 100 ML IV ONE (10:00)
[2019-03-02] MEDS: LEVOFLOXACIN INJ 750 MG in PREMIX 1 EACH IV SCH (14:47)
[2019-03-03] MEDS: ALBUTEROL/IPRATROPIUM 3 ML NEB RESP TX SCH ×5 (01:14→19:38)
[2019-03-03] MEDS: INSULIN REGULAR 100 UNIT/ML SUBCUT SCH ×4 (01:59→18:59)
[2019-03-03] MEDS: LEVOTHYROXINE 125 MCG TABLET PO SCH (05:12)
[2019-03-03 05:47] LABS: Basophils % 0.1 % (0.0-0.8); Eosinophils % 0.5 % (0.00-10.9); Hematocrit 29.3 VOL% (35.7-47.0); Hemoglobin 9.3 GM/DL (12.0-16.0); Immature Granulocytes % 1.7 %; Immature Granulocytes Absolute 0.15 #; Lymphocytes # 1.2 10*3/uL (1.4-4.0); Lymphocytes % 13.2 % (21.3-54.2); Mean Corpuscular HGB Conc 31.7 GM/DL (32-36); Mean Platelet Volume 9.9 FL (9.6-12.0); Monocytes % 9.8 % (1.7-12.7); Neutrophils % 74.7 % (38.7-73.9); Platelet Count 327 T/CUMM (130-400); Red Blood Count 3.33 MC/CUMM (3.8-5.5); Red Cell Distribution Width 18.7 % (9.3-17.3); White Blood Count 8.7 T/CUMM (4-12)
[2019-03-03 05:59] LABS: Calcium 8.7 MG/DL (8.5-10.1); Osmolality,Calculated 277.7 MOS/KG (273-304)
[2019-03-03 06:32] LABS: Hypochromasia 1+; Microcytosis 1+
[2019-03-03 06:33] LABS: Platelet Estimate Normal; Spherocytes Few; Target Cells Slight
[2019-03-03] MEDS ORDERED: ceFAZolin 1,000 MG in SYRINGE 1 EACH IV ONE (09:21)
[2019-03-03] MEDS ORDERED: LACTATED RINGERS 1,000 ML IV SCH (09:30)
[2019-03-03] MEDS ORDERED: ceFAZolin 1,000 MG VIAL ONE (09:33)
[2019-03-03] MEDS ORDERED: PROPOFOL 200 MG/20 ML VIAL IV ONE (10:00)
[2019-03-03] MEDS ORDERED: LIDOCAINE 2% 5 ML VIAL ONE (10:00)
[2019-03-03] MEDS ORDERED: ETOMIDATE 20 MG/10 ML VIAL IV ONE (10:00)
[2019-03-03] MEDS: ASPIRIN CHEW 81 MG TABLET PO SCH (10:09)
[2019-03-03] MEDS ORDERED: diphenhydrAMINE 25 MG/10 ML UDCUP PEG PRN (12:00)
[2019-03-03] MEDS ORDERED: LACTULOSE 20 GM/30 ML UDCUP PEG PRN (12:00)
[2019-03-03] MEDS: LEVOFLOXACIN INJ 750 MG in PREMIX 1 EACH IV SCH (13:39)
[2019-03-03] MEDS: PANTOPRAZOLE 40 MG VIAL IV SCH ×2 (18:33→20:41)
[2019-03-03] MEDS: DEXTROSE 5% NACL 0.45% 1,000 ML IV SCH (20:38)
[2019-03-04] MEDS: INSULIN REGULAR 100 UNIT/ML SUBCUT SCH ×4 (01:20→18:31)
[2019-03-04] MEDS: ALBUTEROL/IPRATROPIUM 3 ML NEB RESP TX SCH ×4 (02:45→19:25)
[2019-03-04] MEDS ORDERED: LANSOPRAZOLE ODT 30 MG TABLET PEG SCH (06:30)
[2019-03-04 06:48] LABS: Basophils % 0.3 % (0.0-0.8); Eosinophils # 0.1 10*3/uL (0.0-0.87); Eosinophils % 0.9 % (0.00-10.9); Hematocrit 28.8 VOL% (35.7-47.0); Hemoglobin 8.9 GM/DL (12.0-16.0); Immature Granulocytes % 2.5 %; Immature Granulocytes Absolute 0.17 #; Lymphocytes # 1.2 10*3/uL (1.4-4.0); Lymphocytes % 17.2 % (21.3-54.2); Mean Corpuscular HGB Conc 30.9 GM/DL (32-36); Mean Corpuscular Volume 90.6 FL (87-102); Mean Platelet Volume 9.5 FL (9.6-12.0); Monocytes % 10.2 % (1.7-12.7); Neutrophils % 68.9 % (38.7-73.9); Platelet Count 364 T/CUMM (130-400); Red Blood Count 3.18 MC/CUMM (3.8-5.5); Red Cell Distribution Width 18.6 % (9.3-17.3); White Blood Count 6.7 T/CUMM (4-12)
[2019-03-04 07:08] LABS: Calcium 8.4 MG/DL (8.5-10.1); Osmolality,Calculated 280.3 MOS/KG (273-304)
[2019-03-04 07:15] LABS: Band Neutrophils 15 % (0-10); Eosinophils 1 % (0-10); Lymphocytes 14 % (20-55); Segmented Neutrophils 61 % (50-85); Total Cells Counted 100
[2019-03-04 07:16] LABS: Anisocytosis Slight; Macrocytosis 1+; Platelet Estimate Normal
[2019-03-04] MEDS: PANTOPRAZOLE 40 MG VIAL IV SCH ×2 (09:12→20:55)
[2019-03-04] MEDS: LEVOFLOXACIN INJ 750 MG in PREMIX 1 EACH IV SCH (12:12)
[2019-03-04] MEDS: POTASSIUM CHLORIDE RIDER 10 MEQ in PREMIX 1 EACH IV PRN ×4 (14:13→20:54)
[2019-03-04] MEDS ORDERED: SODIUM PHOSPHATE ENEMA 133 ML BOTTLE RECTAL ONE (16:55)
[2019-03-04] MEDS: DEXTROSE 5% NACL 0.45% 1,000 ML IV SCH (18:51)
[2019-03-05] MEDS: ALBUTEROL/IPRATROPIUM 3 ML NEB RESP TX SCH ×4 (00:35→19:15)
[2019-03-05 05:50] LABS: Basophils % 0.4 % (0.0-0.8); Eosinophils # 0.1 10*3/uL (0.0-0.87); Eosinophils % 0.6 % (0.00-10.9); Hematocrit 26.4 VOL% (35.7-47.0); Hemoglobin 8.3 GM/DL (12.0-16.0); Immature Granulocytes % 1.9 %; Immature Granulocytes Absolute 0.15 #; Lymphocytes # 1.1 10*3/uL (1.4-4.0); Lymphocytes % 14.2 % (21.3-54.2); Mean Corpuscular HGB Conc 31.4 GM/DL (32-36); Mean Corpuscular Volume 89.8 FL (87-102); Monocytes % 7.4 % (1.7-12.7); Neutrophils % 75.5 % (38.7-73.9); Platelet Count 398 T/CUMM (130-400); Red Blood Count 2.94 MC/CUMM (3.8-5.5); Red Cell Distribution Width 18.6 % (9.3-17.3)
[2019-03-05 06:18] LABS: Calcium 8.4 MG/DL (8.5-10.1); Osmolality,Calculated 278.5 MOS/KG (273-304)
[2019-03-05] MEDS: INSULIN REGULAR 100 UNIT/ML SUBCUT SCH ×3 (06:37→18:27)
[2019-03-05] MEDS: POTASSIUM CHLORIDE RIDER 10 MEQ in PREMIX 1 EACH IV PRN (06:46)
[2019-03-05] MEDS: PANTOPRAZOLE 40 MG VIAL IV SCH ×2 (09:27→21:34)
[2019-03-05] MEDS: LEVOFLOXACIN INJ 750 MG in PREMIX 1 EACH IV SCH (12:45)
[2019-03-06] MEDS: ALBUTEROL/IPRATROPIUM 3 ML NEB RESP TX SCH ×4 (00:05→19:02)
[2019-03-06] MEDS: ACETAMINOPHEN 325 MG/10.15 ML UDCUP PEG PRN (01:00)
[2019-03-06] MEDS: LEVOTHYROXINE 125 MCG TABLET PEG SCH (05:26)
[2019-03-06] MEDS: INSULIN REGULAR 100 UNIT/ML SUBCUT SCH ×4 (05:27→18:22)
[2019-03-06 05:57] LABS: Basophils % 0.1 % (0.0-0.8); Eosinophils # 0.1 10*3/uL (0.0-0.87); Eosinophils % 0.7 % (0.00-10.9); Hematocrit 26.2 VOL% (35.7-47.0); Hemoglobin 8.1 GM/DL (12.0-16.0); Immature Granulocytes % 2.9 %; Immature Granulocytes Absolute 0.24 #; Lymphocytes # 1.4 10*3/uL (1.4-4.0); Lymphocytes % 17.4 % (21.3-54.2); Mean Corpuscular HGB Conc 30.9 GM/DL (32-36); Mean Corpuscular Volume 89.7 FL (87-102); Neutrophils % 72.9 % (38.7-73.9); Platelet Count 422 T/CUMM (130-400); Red Blood Count 2.92 MC/CUMM (3.8-5.5); Red Cell Distribution Width 18.7 % (9.3-17.3); White Blood Count 8.2 T/CUMM (4-12)
[2019-03-06 06:13] LABS: % Iron Saturation 24.4 % (18-50); Calcium 8.2 MG/DL (8.5-10.1); Ferritin 378.1 ng/ml (8-252); Osmolality,Calculated 279.5 MOS/KG (273-304)
[2019-03-06] MEDS: PANTOPRAZOLE 40 MG VIAL IV SCH ×2 (10:00→21:44)
[2019-03-06] MEDS: LISINOPRIL 20 MG TABLET PEG SCH (10:00)
[2019-03-06] MEDS: LEVOFLOXACIN INJ 750 MG in PREMIX 1 EACH IV SCH (13:28)
[2019-03-07] MEDS: INSULIN REGULAR 100 UNIT/ML SUBCUT SCH ×4 (00:12→18:18)
[2019-03-07] MEDS: ALBUTEROL/IPRATROPIUM 3 ML NEB RESP TX SCH ×4 (01:20→18:55)
[2019-03-07 05:05] LABS: Calcium 8.2 MG/DL (8.5-10.1); Osmolality,Calculated 278.5 MOS/KG (273-304)
[2019-03-07] MEDS: LEVOTHYROXINE 125 MCG TABLET PEG SCH (06:56)
[2019-03-07] MEDS: PANTOPRAZOLE 40 MG VIAL IV SCH (08:59)
[2019-03-07] MEDS: LISINOPRIL 20 MG TABLET PEG SCH (08:59)
[2019-03-07] MEDS ORDERED: cefOXitin 2,000 MG in SYRINGE 1 EACH IV ONE (09:11)
[2019-03-07] MEDS ORDERED: BUPIVACAINE 0.25% /EPI 10 ML VIAL ONE (11:36)
[2019-03-07] MEDS ORDERED: LIDOCAINE 1%/EPI INJ 20 ML VIAL ONE (11:36)
[2019-03-07] MEDS ORDERED: LACTATED RINGERS 1,000 ML IV SCH (12:30)
[2019-03-07] MEDS ORDERED: SEVOFLURANE 1 UNIT/15 MINUTE INH ONE (13:13)
[2019-03-07] MEDS ORDERED: PROPOFOL 200 MG/20 ML VIAL IV ONE (13:13)
[2019-03-07] MEDS ORDERED: fentaNYL 100 MCG/2 ML VIAL ONE (13:13)
[2019-03-07] MEDS ORDERED: MIDAZOLAM 2 MG/2 ML VIAL ONE (13:13)
[2019-03-07] MEDS ORDERED: PHENYLEPHRINE 1 MG/10 ML SYRINGE IV ONE (13:14)
[2019-03-07] MEDS: LEVOFLOXACIN INJ 750 MG in PREMIX 1 EACH IV SCH (14:49)
[2019-03-07] MEDS: LANSOPRAZOLE ODT 30 MG TABLET PEG SCH (22:33)
[2019-03-07] MEDS: levETIRAcetam LIQUID 100 MG/ML 30 ML/BOTTLE PEG SCH (22:33)
[2019-03-08] MEDS: ALBUTEROL/IPRATROPIUM 3 ML NEB RESP TX SCH ×4 (01:06→19:19)
[2019-03-08] MEDS: INSULIN REGULAR 100 UNIT/ML SUBCUT SCH ×4 (05:46→18:43)
[2019-03-08] MEDS: LEVOTHYROXINE 125 MCG TABLET PEG SCH (05:50)
[2019-03-08] MEDS: ASPIRIN CHEW 81 MG TABLET PO SCH (10:11)
[2019-03-08] MEDS: LANSOPRAZOLE ODT 30 MG TABLET PEG SCH ×2 (10:11→20:56)
[2019-03-08] MEDS: levETIRAcetam LIQUID 100 MG/ML 30 ML/BOTTLE PEG SCH ×2 (10:11→20:56)
[2019-03-08] MEDS: LISINOPRIL 20 MG TABLET PEG SCH (10:12)
[2019-03-08] MEDS: SUCRALFATE 1 GM/10 ML UDCUP PER TUBE SCH ×3 (12:45→20:56)
[2019-03-08] MEDS: FERROUS SULFATE 300 MG/5 ML UDCUP PEG SCH (20:56)
[2019-03-09] MEDS: ALBUTEROL/IPRATROPIUM 3 ML NEB RESP TX SCH ×4 (00:03→18:51)
[2019-03-09] MEDS: INSULIN REGULAR 100 UNIT/ML SUBCUT SCH ×4 (03:46→18:28)
[2019-03-09 05:39] LABS: Basophils % 0.6 % (0.0-0.8); Eosinophils % 0.6 % (0.00-10.9); Hematocrit 26.9 VOL% (35.7-47.0); Hemoglobin 8.6 GM/DL (12.0-16.0); Immature Granulocytes % 7.8 %; Immature Granulocytes Absolute 0.48 #; Lymphocytes # 1.1 10*3/uL (1.4-4.0); Lymphocytes % 18.2 % (21.3-54.2); Mean Corpuscular Volume 89.7 FL (87-102); Mean Platelet Volume 8.6 FL (9.6-12.0); Monocytes % 8.6 % (1.7-12.7); Neutrophils % 64.2 % (38.7-73.9); Platelet Count 402 T/CUMM (130-400); Red Cell Distribution Width 19.5 % (9.3-17.3); White Blood Count 6.2 T/CUMM (4-12)
[2019-03-09 06:00] LABS: Calcium 8.4 MG/DL (8.5-10.1); Osmolality,Calculated 279.7 MOS/KG (273-304); Prealbumin 8.7 MG/DL (20-40)
[2019-03-09] MEDS: LEVOTHYROXINE 125 MCG TABLET PEG SCH (06:18)
[2019-03-09 06:36] LABS: Band Neutrophils 3 % (0-10); Hypochromasia 1+; Lymphocytes 12 % (20-55); Myelocytes 1 %; Platelet Estimate Adequate; Segmented Neutrophils 71 % (50-85); Total Cells Counted 100
[2019-03-09] MEDS: levETIRAcetam LIQUID 100 MG/ML 30 ML/BOTTLE PEG SCH ×2 (08:31→20:38)
[2019-03-09] MEDS ORDERED: ROPIVACAINE 0.5% 30 ML VIAL ONE (08:33)
[2019-03-09] MEDS ORDERED: DEXAMETHASONE 4 MG/1 ML VIAL ONE ×3 (08:33→11:08)
[2019-03-09] MEDS: ASPIRIN CHEW 81 MG TABLET PO SCH (08:51)
[2019-03-09] MEDS: FERROUS SULFATE 300 MG/5 ML UDCUP PEG SCH ×2 (08:52→20:39)
[2019-03-09] MEDS: SUCRALFATE 1 GM/10 ML UDCUP PER TUBE SCH ×4 (08:52→20:38)
[2019-03-09] MEDS: LISINOPRIL 20 MG TABLET PEG SCH (08:52)
[2019-03-09] MEDS: LANSOPRAZOLE ODT 30 MG TABLET PEG SCH ×2 (08:52→20:38)
[2019-03-09] MEDS ORDERED: LACTATED RINGERS 1,000 ML IV SCH (09:00)
[2019-03-09] MEDS ORDERED: cefOXitin 2,000 MG in SYRINGE 1 EACH IV ONE (09:00)
[2019-03-09] MEDS ORDERED: PROPOFOL 200 MG/20 ML VIAL IV ONE (11:07)
[2019-03-09] MEDS ORDERED: MIDAZOLAM 2 MG/2 ML VIAL ONE (11:07)
[2019-03-09] MEDS ORDERED: fentaNYL 100 MCG/2 ML VIAL ONE (11:07)
[2019-03-09] MEDS ORDERED: SEVOFLURANE 1 UNIT/15 MINUTE INH ONE (11:07)
[2019-03-09] MEDS ORDERED: ONDANSETRON 4 MG/2 ML VIAL ONE (11:08)
[2019-03-09] MEDS ORDERED: SUCCINYLCHOLINE 200 MG/10 ML VIAL ONE (11:08)
[2019-03-09] MEDS ORDERED: KETOROLAC 30 MG/1 ML VIAL ONE (11:08)
[2019-03-09] MEDS ORDERED: ROCURONIUM 100 MG/10 ML VIAL IV ONE (11:08)
[2019-03-09] MEDS ORDERED: PHENYLEPHRINE 1 MG/10 ML SYRINGE IV ONE (11:08)
[2019-03-09] MEDS ORDERED: diphenhydrAMINE 50 MG/1 ML VIAL IV PRN (16:38)
[2019-03-10] MEDS: ALBUTEROL/IPRATROPIUM 3 ML NEB RESP TX SCH ×3 (00:03→13:50)
[2019-03-10] MEDS: ACETAMINOPHEN 325 MG/10.15 ML UDCUP PEG PRN (01:29)
[2019-03-10] MEDS: POTASSIUM CHLORIDE RIDER 10 MEQ in PREMIX 1 EACH IV PRN ×2 (01:41→02:48)
[2019-03-10] MEDS: INSULIN REGULAR 100 UNIT/ML SUBCUT SCH ×3 (02:36→13:34)
[2019-03-10 05:11] LABS: Basophils % 0.4 % (0.0-0.8); Eosinophils # 0.1 10*3/uL (0.0-0.87); Eosinophils % 0.8 % (0.00-10.9); Hematocrit 24.6 VOL% (35.7-47.0); Hemoglobin 7.7 GM/DL (12.0-16.0); Immature Granulocytes % 5.4 %; Immature Granulocytes Absolute 0.39 #; Lymphocytes # 1.8 10*3/uL (1.4-4.0); Lymphocytes % 24.3 % (21.3-54.2); Mean Corpuscular HGB Conc 31.3 GM/DL (32-36); Mean Corpuscular Volume 91.1 FL (87-102); Mean Platelet Volume 8.4 FL (9.6-12.0); Neutrophils % 56.1 % (38.7-73.9); Platelet Count 387 T/CUMM (130-400); Red Cell Distribution Width 19.8 % (9.3-17.3); White Blood Count 7.2 T/CUMM (4-12)
[2019-03-10] MEDS: LEVOTHYROXINE 125 MCG TABLET PEG SCH (05:25)
[2019-03-10 05:30] LABS: Calcium 8.6 MG/DL (8.5-10.1); Osmolality,Calculated 275.7 MOS/KG (273-304)
[2019-03-10 05:41] LABS: Band Neutrophils 6 % (0-10); Lymphocytes 19 % (20-55); Metamyelocytes 3 %; Myelocytes 2 %; Platelet Estimate Normal; Segmented Neutrophils 56 % (50-85); Total Cells Counted 100
[2019-03-10 05:42] LABS: Hypochromasia 1+; Ovalocytes Few
[2019-03-10 06:51] LABS: Basophils % 0.4 % (0.0-0.8); Eosinophils # 0.1 10*3/uL (0.0-0.87); Hematocrit 25.8 VOL% (35.7-47.0); Immature Granulocytes % 6.4 %; Immature Granulocytes Absolute 0.44 #; Lymphocytes # 1.4 10*3/uL (1.4-4.0); Lymphocytes % 19.6 % (21.3-54.2); Mean Corpuscular Volume 92.5 FL (87-102); Neutrophils % 58.6 % (38.7-73.9); Platelet Count 350 T/CUMM (130-400); Red Blood Count 2.79 MC/CUMM (3.8-5.5); Red Cell Distribution Width 19.9 % (9.3-17.3); White Blood Count 6.9 T/CUMM (4-12)
[2019-03-10 07:12] LABS: Band Neutrophils 1 % (0-10); Eosinophils 1 % (0-10); Hypochromasia 1+; Lymphocytes 29 % (20-55); Platelet Estimate Adequate; Segmented Neutrophils 64 % (50-85); Total Cells Counted 100
[2019-03-10] MEDS: ASPIRIN CHEW 81 MG TABLET PO SCH (09:58)
[2019-03-10] MEDS: SUCRALFATE 1 GM/10 ML UDCUP PER TUBE SCH ×3 (09:58→16:41)
[2019-03-10] MEDS: LISINOPRIL 20 MG TABLET PEG SCH (09:58)
[2019-03-10] MEDS: FERROUS SULFATE 300 MG/5 ML UDCUP PEG SCH (09:58)
[2019-03-10] MEDS: levETIRAcetam LIQUID 100 MG/ML 30 ML/BOTTLE PEG SCH (09:58)
[2019-03-10] MEDS: LANSOPRAZOLE ODT 30 MG TABLET PEG SCH (09:58)
[2019-03-10 13:39] VITALS: BP 110/57
== END 2019-03-10 16:56 | DRG 981 ==
LOC: EDBD → EDUNIT# → N.ED 17:32 → SUATTDRO 20:46 → N.EDINP 20:46 → N.2E 22:31 → N.ICU 02-24 08:40 → N.2E 02-25 17:42
PROVIDERS: ADMIT Internal Medicine; ATTEND Internal Medicine Cardiovascular Disease

== ENCOUNTER 2019-03-29 11:16 | Inpatient (IN) ==
[2019-03-29] MEDS ORDERED: SODIUM CHLORIDE 0.9% 1,000 ML IV STA ×2 (11:25→12:43)
[2019-03-29 11:42] LABS: Basophils # 0.2 10*3/uL (0.0-0.2); Basophils % 0.6 % (0.0-0.8); Eosinophils # 0.1 10*3/uL (0.0-0.87); Eosinophils % 0.4 % (0.00-10.9); Hematocrit 28.6 VOL% (35.7-47.0); Hemoglobin 8.4 GM/DL (12.0-16.0); Immature Granulocytes % 8.4 %; Immature Granulocytes Absolute 2.29 #; Lymphocytes # 3.9 10*3/uL (1.4-4.0); Lymphocytes % 14.3 % (21.3-54.2); Mean Corpuscular HGB Conc 29.4 GM/DL (32-36); Mean Corpuscular Volume 97.3 FL (87-102); Mean Platelet Volume 8.8 FL (9.6-12.0); Monocytes % 11.9 % (1.7-12.7); Neutrophils % 64.4 % (38.7-73.9); Platelet Count 790 T/CUMM (130-400); Red Blood Count 2.94 MC/CUMM (3.8-5.5); Red Cell Distribution Width 18.1 % (9.3-17.3); White Blood Count 27.2 T/CUMM (4-12)
[2019-03-29 11:48] LABS: PT Patient Result 10.9 SECS; Partial Thromboplastin Time 28.9 SECS (0-40)
[2019-03-29] MEDS ORDERED: PIPERACILLIN/TAZOBACTAM 3,375 MG in SODIUM CHLORIDE 0.9% 100 ML IV STA (11:58)
[2019-03-29 12:03] LABS: Alanine Aminotransferase 34 U/L (13-56); Albumin 1.9 G/DL (3.4-5.0); Alkaline Phosphatase 199 U/L (45-117); Aspartate Amino Transferase 27 U/L (0-37); Bilirubin,Total < 0.39 MG/DL (0.2-1.0); Blood Urea Nitrogen 68 MG/DL (7-18); Glucose 373 MG/DL (74-106); Osmolality,Calculated 307.8 MOS/KG (273-304); Total Protein 9.4 G/DL (6.4-8.3)
[2019-03-29 12:04] LABS: Band Neutrophils 2 % (0-10); Eosinophils 2 % (0-10); Lymphocytes 13 % (20-55); Myelocytes 1 %; Platelet Estimate Increased; Segmented Neutrophils 69 % (50-85); Total Cells Counted 100
[2019-03-29 12:05] LABS: Hypochromasia 1+
[2019-03-29] MEDS ORDERED: ONDANSETRON 4 MG/2 ML VIAL IV PRN (12:57)
[2019-03-29] MEDS ORDERED: DOCUSATE SODIUM 100 MG CAPSULE PO PRN (12:57)
[2019-03-29] MEDS ORDERED: BISACODYL 5 MG TABLET PO PRN (12:57)
[2019-03-29] MEDS ORDERED: ALBUTEROL 2.5 MG/3 ML NEB RESP TX PRN (12:57)
[2019-03-29] MEDS ORDERED: ACETAMINOPHEN 325 MG TABLET PO PRN (12:57)
[2019-03-29] MEDS ORDERED: SODIUM CHLORIDE 0.9% 1,000 ML IV ONE (13:05)
[2019-03-29 13:33] LABS: Apearance,Urine CLOUDY (Clear); Bilirubin,Urine Negative (Negative); Blood, Urine Small mg/dL (Negative); Glucose,Urine (UA) >=500 mg/dL (Negative); Ketones,Urine 5 mg/dL (Negative); Nitrite,Urine Negative (Negative); Protein,Urine 100 MG/DL; RBC,Urine 4 /HPF (0-4); Squamous Epithelial Cell,Urine Occasional /HPF (0-10); Urine Specific Gravity 1.017 (1.001-1.035); WBC,Urine 454 /HPF (0-6)
[2019-03-29 13:36] LABS: Urine Color Dark yellow (Yellow)
[2019-03-29 14:18] LABS: ABG Base Excess 4.3 MMOL/L (-2.5-2.5); ABG HCO3 28.3 MMOL/L (20-26); ABG Oxygen Saturation 98.5 % (95-100); ABG PCO2 44.7 MM HG (35-48); ABG PH 7.423 (7.35-7.45); ABG TCO2 27.2 MMOL/L (23-27)
[2019-03-29] MEDS ORDERED: ENOXAPARIN 40 MG/0.4 ML SYRINGE SUBCUT SCH (14:30)
[2019-03-29] MEDS: FAMOTIDINE 20 MG/2 ML VIAL IV SCH (15:12)
[2019-03-29] MEDS ORDERED: DEXTROSE 50% 25 GM/50 ML VIAL IV PRN (15:20)
[2019-03-29] MEDS ORDERED: GLUCAGON 1 MG VIAL IM PRN (15:20)
[2019-03-29] MEDS: SODIUM CHLORIDE 0.9% 1,000 ML IV SCH (16:49)
[2019-03-29] MEDS ORDERED: NOREPINEPHRINE 8 MG in SODIUM CHLORIDE 0.9% 242 ML IV PRN (18:18)
[2019-03-29] MEDS: INSULIN REGULAR 100 UNIT/ML SUBCUT SCH (18:29)
[2019-03-29] MEDS: PIPERACILLIN/TAZOBACTAM 3,375 MG in SODIUM CHLORIDE 0.9% 100 ML IV SCH (21:30)
[2019-03-29] MEDS: HydrOXYzine PAMOATE 50 MG CAPSULE PEG SCH (21:30)
[2019-03-29] MEDS: VALPROIC ACID 250 MG/5 ML UDCUP PO SCH (21:35)
[2019-03-29] MEDS: CALCIUM (CARBONATE)/VITAMIN D 600 MG-400 UNIT TABLET PEG SCH (21:35)
[2019-03-30] MEDS: SODIUM CHLORIDE 0.9% 1,000 ML IV SCH ×4 (01:19→21:00)
[2019-03-30] MEDS: FAMOTIDINE 20 MG/2 ML VIAL IV SCH ×2 (01:19→14:09)
[2019-03-30] MEDS: INSULIN REGULAR 100 UNIT/ML SUBCUT SCH ×4 (01:26→18:56)
[2019-03-30] MEDS: PIPERACILLIN/TAZOBACTAM 3,375 MG in SODIUM CHLORIDE 0.9% 100 ML IV SCH ×3 (04:30→20:49)
[2019-03-30 04:40] LABS: Basophils # 0.1 10*3/uL (0.0-0.2); Basophils % 0.4 % (0.0-0.8); Eosinophils # 0.2 10*3/uL (0.0-0.87); Eosinophils % 0.8 % (0.00-10.9); Hematocrit 23.3 VOL% (35.7-47.0); Hemoglobin 6.9 GM/DL (12.0-16.0); Immature Granulocytes % 5.8 %; Immature Granulocytes Absolute 1.31 #; Lymphocytes # 2.2 10*3/uL (1.4-4.0); Lymphocytes % 9.6 % (21.3-54.2); Mean Corpuscular HGB Conc 29.6 GM/DL (32-36); Mean Corpuscular Volume 98.7 FL (87-102); Monocytes % 12.4 % (1.7-12.7); Platelet Count 662 T/CUMM (130-400); Red Blood Count 2.36 MC/CUMM (3.8-5.5); White Blood Count 22.8 T/CUMM (4-12)
[2019-03-30 04:54] LABS: Alanine Aminotransferase 22 U/L (13-56); Albumin 1.6 G/DL (3.4-5.0); Alkaline Phosphatase 149 U/L (45-117); Aspartate Amino Transferase 16 U/L (0-37); Bilirubin,Total < 0.39 MG/DL (0.2-1.0); Blood Urea Nitrogen 48 MG/DL (7-18); Calcium 8.9 MG/DL (8.5-10.1); Glucose 76 MG/DL (74-106); Osmolality,Calculated 292.3 MOS/KG (273-304); Total Protein 7.7 G/DL (6.4-8.3)
[2019-03-30 05:45] LABS: Band Neutrophils 1 % (0-10); Lymphocytes 9 % (20-55); Myelocytes 1 %; Segmented Neutrophils 81 % (50-85); Total Cells Counted 100
[2019-03-30 05:46] LABS: Hypochromasia 1+; Platelet Estimate Increased
[2019-03-30 05:47] LABS: Anisocytosis 1+; Microcytosis 1+
[2019-03-30] MEDS: LEVOTHYROXINE 125 MCG TABLET PEG SCH (06:47)
[2019-03-30] MEDS ORDERED: CHOLECALCIFEROL 1,000 UNIT TABLET PO SCH (08:00)
[2019-03-30] MEDS ORDERED: SODIUM CHLORIDE 0.9% 1,000 ML IV PRN (09:41)
[2019-03-30 10:41] LABS: Apearance,Urine CLOUDY (Clear); Bilirubin,Urine Negative (Negative); Blood, Urine Small mg/dL (Negative); Glucose,Urine (UA) 150 mg/dL (Negative); Ketones,Urine Negative (Negative); Nitrite,Urine Negative (Negative); Protein,Urine 100 MG/DL; RBC,Urine 6 /HPF (0-4); Urine Color Yellow (Yellow); Urine Specific Gravity 1.019 (1.001-1.035); Urine Urobilinogen < 2.0 EU/DL (0.2-1.0); WBC,Urine 252 /HPF (0-6)
[2019-03-30] MEDS ORDERED: LIDOCAINE 1%/EPI INJ 20 ML VIAL ONE (11:31)
[2019-03-30] MEDS ORDERED: MIDAZOLAM 2 MG/2 ML VIAL ONE (12:56)
[2019-03-30] MEDS ORDERED: fentaNYL 100 MCG/2 ML VIAL ONE (12:56)
[2019-03-30] MEDS ORDERED: KETAMINE 500 MG/10 ML VIAL ONE (12:57)
[2019-03-30] MEDS: MULTIVITAMIN (CENTRUM) TABLET PO SCH (14:03)
[2019-03-30] MEDS: ASPIRIN EC 81 MG TABLET PO SCH (14:03)
[2019-03-30] MEDS: BENZTROPINE 0.5 MG TABLET PEG SCH (14:03)
[2019-03-30] MEDS: VALPROIC ACID 250 MG/5 ML UDCUP PO SCH ×2 (14:04→20:57)
[2019-03-30] MEDS: CHOLECALCIFEROL 1,000 UNIT TABLET PEG SCH (14:04)
[2019-03-30] MEDS: CALCIUM (CARBONATE)/VITAMIN D 600 MG-400 UNIT TABLET PEG SCH ×2 (14:04→20:58)
[2019-03-30] MEDS: HydrOXYzine PAMOATE 50 MG CAPSULE PEG SCH (20:58)
[2019-03-31] MEDS: INSULIN REGULAR 100 UNIT/ML SUBCUT SCH ×4 (00:55→17:44)
[2019-03-31] MEDS: FAMOTIDINE 20 MG/2 ML VIAL IV SCH ×2 (00:59→12:57)
[2019-03-31] MEDS: PIPERACILLIN/TAZOBACTAM 3,375 MG in SODIUM CHLORIDE 0.9% 100 ML IV SCH ×3 (05:09→20:13)
[2019-03-31] MEDS: LEVOTHYROXINE 125 MCG TABLET PEG SCH (05:47)
[2019-03-31 05:52] LABS: Basophils # 0.1 10*3/uL (0.0-0.2); Basophils % 0.5 % (0.0-0.8); Eosinophils # 0.1 10*3/uL (0.0-0.87); Eosinophils % 0.5 % (0.00-10.9); Hematocrit 26.1 VOL% (35.7-47.0); Hemoglobin 7.9 GM/DL (12.0-16.0); Immature Granulocytes % 5.7 %; Lymphocytes # 1.6 10*3/uL (1.4-4.0); Lymphocytes % 8.8 % (21.3-54.2); Mean Corpuscular HGB Conc 30.3 GM/DL (32-36); Mean Corpuscular Volume 95.3 FL (87-102); Mean Platelet Volume 8.9 FL (9.6-12.0); Monocytes % 10.7 % (1.7-12.7); Neutrophils % 73.8 % (38.7-73.9); Platelet Count 505 T/CUMM (130-400); Red Blood Count 2.74 MC/CUMM (3.8-5.5); Red Cell Distribution Width 18.1 % (9.3-17.3); White Blood Count 17.7 T/CUMM (4-12)
[2019-03-31 06:32] LABS: Calcium 8.6 MG/DL (8.5-10.1); Osmolality,Calculated 310.9 MOS/KG (273-304)
[2019-03-31 06:49] LABS: Anisocytosis 1+; Band Neutrophils 2 % (0-10); Lymphocytes 9 % (20-55); Metamyelocytes 1 %; Myelocytes 1 %; Segmented Neutrophils 77 % (50-85); Total Cells Counted 100
[2019-03-31 06:50] LABS: Hypochromasia 1+; Platelet Estimate Adequate; Target Cells Few
[2019-03-31] MEDS: VALPROIC ACID 250 MG/5 ML UDCUP PO SCH ×2 (09:56→20:13)
[2019-03-31] MEDS: MULTIVITAMIN (CENTRUM) TABLET PO SCH (09:57)
[2019-03-31] MEDS: CALCIUM (CARBONATE)/VITAMIN D 600 MG-400 UNIT TABLET PEG SCH ×2 (09:57→20:12)
[2019-03-31] MEDS: ASPIRIN EC 81 MG TABLET PO SCH (09:57)
[2019-03-31] MEDS: CHOLECALCIFEROL 1,000 UNIT TABLET PEG SCH (09:58)
[2019-03-31] MEDS: BENZTROPINE 0.5 MG TABLET PEG SCH (09:58)
[2019-03-31] MEDS: SODIUM CHLORIDE 0.9% 1,000 ML IV SCH ×2 (10:00→17:44)
[2019-03-31] MEDS: SODIUM HYPOCHLORITE 0.25% IRRIG 473 ML BOTTLE TOP SCH ×2 (12:48→21:34)
[2019-03-31] MEDS ORDERED: MORPHINE 4 MG/1 ML VIAL IV PRN ×2 (14:21)
[2019-03-31] MEDS ORDERED: HYDROcod/ACETAMIN 7.5-325 MG/15 ML UDCUP PO PRN (14:21)
[2019-03-31 14:56] LABS: Hematocrit 27.1 VOL% (35.7-47.0); Hemoglobin 8.2 GM/DL (12.0-16.0)
[2019-03-31] MEDS: HydrOXYzine PAMOATE 50 MG CAPSULE PEG SCH (20:13)
[2019-04-01] MEDS: SODIUM CHLORIDE 0.9% 1,000 ML IV SCH ×2 (00:26→20:01)
[2019-04-01] MEDS: INSULIN REGULAR 100 UNIT/ML SUBCUT SCH ×4 (00:31→18:17)
[2019-04-01] MEDS: FAMOTIDINE 20 MG/2 ML VIAL IV SCH ×2 (01:31→13:14)
[2019-04-01] MEDS: PIPERACILLIN/TAZOBACTAM 3,375 MG in SODIUM CHLORIDE 0.9% 100 ML IV SCH ×3 (04:38→20:00)
[2019-04-01 05:25] LABS: Basophils # 0.1 10*3/uL (0.0-0.2); Basophils % 0.6 % (0.0-0.8); Eosinophils # 0.1 10*3/uL (0.0-0.87); Eosinophils % 0.8 % (0.00-10.9); Hematocrit 26.5 VOL% (35.7-47.0); Immature Granulocytes % 5.8 %; Immature Granulocytes Absolute 0.77 #; Lymphocytes # 1.8 10*3/uL (1.4-4.0); Lymphocytes % 13.8 % (21.3-54.2); Mean Corpuscular HGB Conc 30.2 GM/DL (32-36); Mean Corpuscular Volume 95.7 FL (87-102); Mean Platelet Volume 8.7 FL (9.6-12.0); Monocytes % 11.7 % (1.7-12.7); Neutrophils % 67.3 % (38.7-73.9); Platelet Count 500 T/CUMM (130-400); Red Blood Count 2.77 MC/CUMM (3.8-5.5); Red Cell Distribution Width 17.7 % (9.3-17.3); White Blood Count 13.3 T/CUMM (4-12)
[2019-04-01] MEDS: LEVOTHYROXINE 125 MCG TABLET PEG SCH (06:10)
[2019-04-01 06:15] LABS: Calcium 8.4 MG/DL (8.5-10.1); Osmolality,Calculated 310.6 MOS/KG (273-304)
[2019-04-01 06:20] LABS: Anisocytosis 1+; Band Neutrophils 2 % (0-10); Hypochromasia 1+; Lymphocytes 11 % (20-55); Macrocytosis 1+; Metamyelocytes 1 %; Microcytosis 1+; Myelocytes 1 %; Platelet Estimate Increased; Segmented Neutrophils 81 % (50-85); Total Cells Counted 100
[2019-04-01] MEDS: VALPROIC ACID 250 MG/5 ML UDCUP PO SCH ×2 (09:00→20:01)
[2019-04-01] MEDS: CHOLECALCIFEROL 1,000 UNIT TABLET PEG SCH (09:00)
[2019-04-01] MEDS: ASPIRIN EC 81 MG TABLET PO SCH (09:00)
[2019-04-01] MEDS: BENZTROPINE 0.5 MG TABLET PEG SCH (09:00)
[2019-04-01] MEDS: MULTIVITAMIN (CENTRUM) TABLET PO SCH (09:01)
[2019-04-01] MEDS: CALCIUM (CARBONATE)/VITAMIN D 600 MG-400 UNIT TABLET PEG SCH ×2 (09:01→20:01)
[2019-04-01] MEDS: SODIUM HYPOCHLORITE 0.25% IRRIG 473 ML BOTTLE TOP SCH ×2 (09:01→20:03)
[2019-04-01] MEDS ORDERED: SILVER NITRATE STICK 1 EACH TOP ONE (10:24)
[2019-04-01] MEDS: HydrOXYzine PAMOATE 50 MG CAPSULE PEG SCH (20:01)
[2019-04-02] MEDS: INSULIN REGULAR 100 UNIT/ML SUBCUT SCH ×4 (00:36→17:42)
[2019-04-02] MEDS: PIPERACILLIN/TAZOBACTAM 3,375 MG in SODIUM CHLORIDE 0.9% 100 ML IV SCH ×3 (04:31→20:05)
[2019-04-02] MEDS: LEVOTHYROXINE 125 MCG TABLET PEG SCH (05:38)
[2019-04-02] MEDS: MULTIVITAMIN (CENTRUM) TABLET PO SCH (09:44)
[2019-04-02] MEDS: VALPROIC ACID 250 MG/5 ML UDCUP PO SCH ×2 (09:44→19:54)
[2019-04-02] MEDS: ASPIRIN EC 81 MG TABLET PO SCH (09:44)
[2019-04-02] MEDS: CHOLECALCIFEROL 1,000 UNIT TABLET PEG SCH (09:44)
[2019-04-02] MEDS: BENZTROPINE 0.5 MG TABLET PEG SCH (09:44)
[2019-04-02] MEDS: SODIUM HYPOCHLORITE 0.25% IRRIG 473 ML BOTTLE TOP SCH ×2 (09:45→20:06)
[2019-04-02] MEDS: CALCIUM (CARBONATE)/VITAMIN D 600 MG-400 UNIT TABLET PEG SCH ×2 (09:45→20:04)
[2019-04-02] MEDS: SODIUM CHLORIDE 0.9% 1,000 ML IV SCH ×3 (10:36→13:22)
[2019-04-02] MEDS: FAMOTIDINE 20 MG/2 ML VIAL IV SCH ×2 (13:27)
[2019-04-02] MEDS: HydrOXYzine PAMOATE 50 MG CAPSULE PEG SCH (19:55)
[2019-04-03] MEDS: FAMOTIDINE 20 MG/2 ML VIAL IV SCH ×2 (00:23→13:02)
[2019-04-03] MEDS: INSULIN REGULAR 100 UNIT/ML SUBCUT SCH ×3 (00:41→13:00)
[2019-04-03] MEDS: PIPERACILLIN/TAZOBACTAM 3,375 MG in SODIUM CHLORIDE 0.9% 100 ML IV SCH ×2 (03:40→13:05)
[2019-04-03] MEDS: LEVOTHYROXINE 125 MCG TABLET PEG SCH (05:21)
[2019-04-03 08:27] LABS: Calcium 8.6 MG/DL (8.5-10.1); Osmolality,Calculated 304.3 MOS/KG (273-304)
[2019-04-03] MEDS: CALCIUM (CARBONATE)/VITAMIN D 600 MG-400 UNIT TABLET PEG SCH (09:05)
[2019-04-03] MEDS: MULTIVITAMIN (CENTRUM) TABLET PO SCH (09:05)
[2019-04-03] MEDS: CHOLECALCIFEROL 1,000 UNIT TABLET PEG SCH (09:05)
[2019-04-03] MEDS: ASPIRIN EC 81 MG TABLET PO SCH (09:05)
[2019-04-03] MEDS: SODIUM HYPOCHLORITE 0.25% IRRIG 473 ML BOTTLE TOP SCH (09:06)
[2019-04-03] MEDS: VALPROIC ACID 250 MG/5 ML UDCUP PO SCH (09:06)
[2019-04-03] MEDS: BENZTROPINE 0.5 MG TABLET PEG SCH (10:20)
[2019-04-03 12:06] VITALS: BP 143/74
== END 2019-04-03 15:07 | DRG 853 ==
LOC: EDUNIT# → EDBD → N.ED 11:16 → N.EDINP 12:57 → SUATTDRO 12:57 → N.CC 14:46 → N.2E 03-30 17:05
PROVIDERS: ADMIT Internal Medicine; ATTEND Internal Medicine

== ENCOUNTER 2019-06-01 09:15 | Inpatient (IN) ==
[~2019-06-01 09:15] MED LIST: ceFAZolin 2,000 MG in SYRINGE 1 EACH IV ONE
[2019-06-01 10:59] LABS: Basophils # 0.1 10*3/uL (0.0-0.2); Basophils % 0.4 % (0.0-0.8); Eosinophils # 0.1 10*3/uL (0.0-0.87); Eosinophils % 0.7 % (0.00-10.9); Hematocrit 30.3 VOL% (35.7-47.0); Hemoglobin 9.3 GM/DL (12.0-16.0); Immature Granulocytes Absolute 0.32 #; Lymphocytes % 12.1 % (21.3-54.2); Mean Corpuscular HGB Conc 30.7 GM/DL (32-36); Mean Corpuscular Volume 92.1 FL (87-102); Mean Platelet Volume 8.2 FL (9.6-12.0); Monocytes % 9.3 % (1.7-12.7); Neutrophils % 75.5 % (38.7-73.9); Platelet Count 876 T/CUMM (130-400); Red Blood Count 3.29 MC/CUMM (3.8-5.5); Red Cell Distribution Width 14.2 % (9.3-17.3); White Blood Count 16.2 T/CUMM (4-12)
[2019-06-01] MEDS ORDERED: LACTATED RINGERS 1,000 ML IV SCH (11:00)
[2019-06-01] MEDS ORDERED: ceFAZolin 1,000 MG VIAL ONE (11:20)
[2019-06-01 11:23] LABS: Osmolality,Calculated 269.8 MOS/KG (273-304)
[2019-06-01] MEDS ORDERED: SEVOFLURANE 1 UNIT/15 MINUTE INH ONE (12:52)
[2019-06-01] MEDS ORDERED: MIDAZOLAM 2 MG/2 ML VIAL ONE (12:53)
[2019-06-01] MEDS ORDERED: PROPOFOL 200 MG/20 ML VIAL IV ONE (12:53)
[2019-06-01] MEDS ORDERED: ONDANSETRON 4 MG/2 ML VIAL ONE (12:54)
[2019-06-01] MEDS ORDERED: fentaNYL 100 MCG/2 ML VIAL ONE (12:54)
[2019-06-01] MEDS ORDERED: DEXAMETHASONE 4 MG/1 ML VIAL ONE ×2 (12:54)
[2019-06-01] MEDS ORDERED: ePHEDrine 50 MG/ML AMP ONE (12:54)
[2019-06-01] MEDS ORDERED: KETOROLAC 30 MG/1 ML VIAL ONE (12:54)
[2019-06-01] MEDS ORDERED: SODIUM CHLORIDE 0.9% 2,000 ML IV ONE (12:55)
[2019-06-01] MEDS ORDERED: PHENYLEPHRINE 1 MG/10 ML SYRINGE IV ONE (12:58)
[2019-06-01] MEDS ORDERED: HYDROmorphone 2 MG/1 ML VIAL IV PRN ×2 (13:13→14:27)
[2019-06-01] MEDS ORDERED: ONDANSETRON 4 MG/2 ML VIAL IV PRN ×2 (13:13→14:27)
[2019-06-01] MEDS ORDERED: ALBUTEROL/IPRATROPIUM 3 ML NEB RESP TX PRN (14:27)
[2019-06-01] MEDS ORDERED: GLUCAGON 1 MG VIAL IM PRN (14:27)
[2019-06-01] MEDS ORDERED: DEXTROSE 50% 25 GM/50 ML VIAL IV PRN (14:27)
[2019-06-01] MEDS ORDERED: BISACODYL 5 MG TABLET PO PRN (14:27)
[2019-06-01] MEDS ORDERED: ACETAMINOPHEN 325 MG TABLET PO PRN (14:27)
[2019-06-01] MEDS ORDERED: KETOROLAC 15 MG/1 ML VIAL IV PRN (14:27)
[2019-06-01] MEDS: LACTATED RINGERS 1,000 ML IV SCH ×2 (14:44→23:07)
[2019-06-01] MEDS: INSULIN LISPRO 100 UNIT/ML SUBCUT SCH (17:00)
[2019-06-01] MEDS: ceFAZolin 2,000 MG in PREMIX 1 EACH IV SCH (20:33)
[2019-06-02] MEDS: LACTATED RINGERS 1,000 ML IV SCH ×2 (01:07→06:49)
[2019-06-02 05:35] LABS: Hematocrit 20.2 VOL% (35.7-47.0)
[2019-06-02 05:58] LABS: Prealbumin 7.9 MG/DL (20-40)
[2019-06-02] MEDS: ceFAZolin 2,000 MG in PREMIX 1 EACH IV SCH (06:15)
[2019-06-02] MEDS ORDERED: SODIUM CHLORIDE 0.9% 1,000 ML IV PRN (06:30)
[2019-06-02 07:08] LABS: Hematocrit 20.3 VOL% (35.7-47.0)
[2019-06-02 07:10] LABS: Hemoglobin 6.2 GM/DL (12.0-16.0)
[2019-06-02] MEDS ORDERED: PANTOPRAZOLE 40 MG TABLET PO SCH (09:00)
[2019-06-02] MEDS: INSULIN LISPRO 100 UNIT/ML SUBCUT SCH ×3 (09:43→15:16)
[2019-06-02 17:34] VITALS: BP 131/76
== END 2019-06-02 17:29 | DRG 239 ==
LOC: N.3E 10:04 → N.SDSINP 10:31 → N.3E 14:14
PROVIDERS: ADMIT Surgery; ATTEND Surgery

== ENCOUNTER 2020-03-11 17:42 | Inpatient (IN) ==
[2020-03-11] MEDS ORDERED: SODIUM CHLORIDE 0.9% 1,000 ML IV STA (18:36)
[2020-03-11 19:31] LABS: Basophils % 0.3 % (0.0-0.8); Hemoglobin 7.9 GM/DL (12.0-16.0); Immature Granulocytes % 1.7 %; Lymphocytes # 1.7 10*3/uL (1.4-4.0); Lymphocytes % 28.9 % (21.3-54.2); Mean Corpuscular HGB Conc 30.4 GM/DL (32-36); Mean Corpuscular Volume 97.7 FL (87-102); Monocytes % 19.2 % (1.7-12.7); Neutrophils % 49.9 % (38.7-73.9); Platelet Count 286 T/CUMM (130-400); Red Blood Count 2.66 MC/CUMM (3.8-5.5); Red Cell Distribution Width 15.6 % (9.3-17.3); White Blood Count 5.9 T/CUMM (4-12)
[2020-03-11 19:48] LABS: INR 1.2; PT Patient Result 12.4 SECS (9.8-11.9)
[2020-03-11 19:49] LABS: Alanine Aminotransferase 13 U/L (13-56); Albumin 2.1 G/DL (3.4-5.0); Alkaline Phosphatase 50 U/L (45-117); Aspartate Amino Transferase 35 U/L (0-37); Bilirubin,Total < 0.39 MG/DL (0.2-1.0); Blood Urea Nitrogen 90 MG/DL (7-18); Estimated Glom Filtration Rate 14 ML/MIN; Glucose 76 MG/DL (74-106); Osmolality,Calculated 301.7 MOS/KG (273-304)
[2020-03-11 20:28] LABS: Lymphocytes 28 % (20-55); Segmented Neutrophils 62 % (50-85); Total Cells Counted 100
[2020-03-11 20:29] LABS: Hypochromasia 4+; Microcytosis 1+; Platelet Estimate Normal
[2020-03-11 20:45] LABS: Apearance,Urine CLOUDY (Clear); Bacteria,Urine Many /HPF (Few); Bilirubin,Urine Negative (Negative); Blood, Urine Small mg/dL (Negative); Glucose,Urine (UA) Negative (Negative); Ketones,Urine 5 mg/dL (Negative); Nitrite,Urine Negative (Negative); Protein,Urine 100 MG/DL; RBC,Urine 28 /HPF (0-4); Urine Color Yellow (Yellow); Urine Specific Gravity 1.015 (1.001-1.035); Urine Urobilinogen < 2.0 EU/DL (0.2-1.0); WBC,Urine 1808 /HPF (0-6)
[2020-03-11 20:48] LABS: Barbiturates Screen,Urine Negative (Negative); Benzodiazepines Screen,Urine Negative (Negative); Cannabinoid Screen,Urine Negative (Negative); Opiate Screen,Urine Negative (Negative); Phencyclidine Screen,Urine Negative (Negative)
[2020-03-11] MEDS ORDERED: cefTRIAXone 1,000 MG in SODIUM CHLORIDE 0.9% 100 ML IV STA (21:01)
[2020-03-12] MEDS ORDERED: ONDANSETRON 4 MG/2 ML VIAL IV PRN (07:27)
[2020-03-12] MEDS ORDERED: DEXTROSE 10% 250 ML BAG IV PRN (07:27)
[2020-03-12] MEDS ORDERED: GLUCAGON 1 MG VIAL IM PRN (07:27)
[2020-03-12] MEDS: SODIUM CHLORIDE 0.9% 1,000 ML IV SCH ×3 (07:48→23:14)
[2020-03-12] MEDS: INSULIN REGULAR 100 UNIT/ML SUBCUT SCH ×3 (07:55→17:52)
[2020-03-12] MEDS ORDERED: DEXTROSE 10% 250 ML IV ONE (07:57)
[2020-03-12] MEDS ORDERED: DEXTROSE 50% 25 GM/50 ML SYRINGE IV ONE (08:02)
[2020-03-12] MEDS: DOCUSATE SODIUM 100 MG CAPSULE PO SCH (10:00)
[2020-03-12] MEDS: MULTIVITAMIN LIQUID (CENTRUM) 60 ML BOTTLE PEG SCH (10:00)
[2020-03-12] MEDS: LEVOTHYROXINE 125 MCG TABLET PEG SCH (10:00)
[2020-03-12] MEDS: FERROUS SULFATE 300 MG/5 ML UDCUP PEG SCH ×2 (10:00→23:24)
[2020-03-12] MEDS: ASCORBIC ACID 500 MG TABLET PEG SCH (10:00)
[2020-03-12] MEDS: CHOLECALCIFEROL 1,000 UNIT TABLET PEG SCH (10:00)
[2020-03-12] MEDS: VALPROIC ACID 250 MG/5 ML UDCUP PEG SCH ×2 (10:00→12:35)
[2020-03-12] MEDS: BENZTROPINE 0.5 MG TABLET PEG SCH (10:00)
[2020-03-12] MEDS: CALCIUM (CARBONATE)/VITAMIN D 600 MG-400 UNIT TABLET PEG SCH ×2 (10:00→23:24)
[2020-03-12] MEDS ORDERED: SODIUM CHLORIDE 0.9% 500 ML IV ONE (14:10)
[2020-03-12] MEDS: LURASIDONE 40 MG TABLET PEG SCH (17:53)
[2020-03-12] MEDS: cefTRIAXone 1,000 MG in SYRINGE 1 EACH IV SCH (23:14)
[2020-03-12] MEDS: ROSUVASTATIN 10 MG TABLET PEG SCH (23:24)
[2020-03-12] MEDS: VALPROIC ACID 250 MG/5 ML UDCUP PO SCH (23:24)
[2020-03-13] MEDS: INSULIN REGULAR 100 UNIT/ML SUBCUT SCH ×4 (00:08→17:40)
[2020-03-13] MEDS: DOCUSATE SODIUM 100 MG CAPSULE PO SCH ×3 (00:11→21:49)
[2020-03-13] MEDS: ACETAMINOPHEN 325 MG TABLET PO PRN ×2 (05:12→22:12)
[2020-03-13] MEDS: LEVOTHYROXINE 125 MCG TABLET PEG SCH (05:12)
[2020-03-13] MEDS: CHOLECALCIFEROL 1,000 UNIT TABLET PEG SCH (08:00)
[2020-03-13] MEDS: CALCIUM (CARBONATE)/VITAMIN D 600 MG-400 UNIT TABLET PEG SCH ×2 (08:00→21:49)
[2020-03-13] MEDS: ASCORBIC ACID 500 MG TABLET PEG SCH (08:00)
[2020-03-13] MEDS: MULTIVITAMIN LIQUID (CENTRUM) 60 ML BOTTLE PEG SCH (08:00)
[2020-03-13] MEDS: VALPROIC ACID 250 MG/5 ML UDCUP PEG SCH ×2 (08:00→12:00)
[2020-03-13] MEDS: FERROUS SULFATE 300 MG/5 ML UDCUP PEG SCH ×2 (08:00→21:49)
[2020-03-13] MEDS: BENZTROPINE 0.5 MG TABLET PEG SCH (08:00)
[2020-03-13 14:38] LABS: Basophils % 0.2 % (0.0-0.8); Hemoglobin 6.9 GM/DL (12.0-16.0); Immature Granulocytes % 1.4 %; Immature Granulocytes Absolute 0.06 #; Lymphocytes # 1.3 10*3/uL (1.4-4.0); Lymphocytes % 29.7 % (21.3-54.2); Mean Corpuscular HGB Conc 31.4 GM/DL (32-36); Mean Corpuscular Volume 96.5 FL (87-102); Mean Platelet Volume 8.8 FL (9.6-12.0); Monocytes % 9.2 % (1.7-12.7); Neutrophils % 59.5 % (38.7-73.9); Platelet Count 216 T/CUMM (130-400); Red Blood Count 2.28 MC/CUMM (3.8-5.5); Red Cell Distribution Width 15.1 % (9.3-17.3); White Blood Count 4.2 T/CUMM (4-12)
[2020-03-13 15:03] LABS: Prealbumin 11.8 MG/DL (20-40)
[2020-03-13 15:09] LABS: Calcium 7.5 MG/DL (8.5-10.1); Osmolality,Calculated 287.4 MOS/KG (273-304); Thyroid Stimulating Hormone 6.63 uIU/ml (0.358-3.74)
[2020-03-13] MEDS: SODIUM CHLORIDE 0.9% 1,000 ML IV SCH ×2 (16:00→17:40)
[2020-03-13] MEDS ORDERED: SODIUM CHLORIDE 0.9% 1,000 ML IV PRN (16:05)
[2020-03-13] MEDS: LURASIDONE 40 MG TABLET PEG SCH (18:36)
[2020-03-13] MEDS: VALPROIC ACID 250 MG/5 ML UDCUP PO SCH (21:49)
[2020-03-13] MEDS: ROSUVASTATIN 10 MG TABLET PEG SCH (21:49)
[2020-03-13] MEDS: cefTRIAXone 1,000 MG in SYRINGE 1 EACH IV SCH (21:50)
[2020-03-14] MEDS: INSULIN REGULAR 100 UNIT/ML SUBCUT SCH ×4 (00:45→18:40)
[2020-03-14] MEDS: SODIUM CHLORIDE 0.9% 1,000 ML IV SCH ×4 (02:19→23:30)
[2020-03-14] MEDS: LEVOTHYROXINE 125 MCG TABLET PEG SCH (06:08)
[2020-03-14 06:36] LABS: Basophils % 0.2 % (0.0-0.8); Eosinophils % 0.2 % (0.00-10.9); Hematocrit 23.3 VOL% (35.7-47.0); Hemoglobin 7.1 GM/DL (12.0-16.0); Immature Granulocytes % 1.4 %; Immature Granulocytes Absolute 0.06 #; Lymphocytes # 1.3 10*3/uL (1.4-4.0); Lymphocytes % 30.5 % (21.3-54.2); Mean Corpuscular HGB Conc 30.5 GM/DL (32-36); Mean Corpuscular Volume 97.1 FL (87-102); Mean Platelet Volume 8.6 FL (9.6-12.0); Monocytes % 9.4 % (1.7-12.7); Neutrophils % 58.3 % (38.7-73.9); Platelet Count 211 T/CUMM (130-400); Red Cell Distribution Width 15.4 % (9.3-17.3); White Blood Count 4.2 T/CUMM (4-12)
[2020-03-14 06:59] LABS: Calcium 8.2 MG/DL (8.5-10.1); Osmolality,Calculated 282.3 MOS/KG (273-304)
[2020-03-14] MEDS: CALCIUM (CARBONATE)/VITAMIN D 600 MG-400 UNIT TABLET PEG SCH ×2 (10:43→22:15)
[2020-03-14] MEDS: MULTIVITAMIN LIQUID (CENTRUM) 60 ML BOTTLE PEG SCH (10:43)
[2020-03-14] MEDS: BENZTROPINE 0.5 MG TABLET PEG SCH (10:43)
[2020-03-14] MEDS: CHOLECALCIFEROL 1,000 UNIT TABLET PEG SCH (10:44)
[2020-03-14] MEDS: ASCORBIC ACID 500 MG TABLET PEG SCH (10:44)
[2020-03-14] MEDS: ACETAMINOPHEN 325 MG/10.15 ML UDCUP PEG PRN ×2 (10:44→15:03)
[2020-03-14] MEDS: FERROUS SULFATE 300 MG/5 ML UDCUP PEG SCH ×2 (10:44→22:15)
[2020-03-14] MEDS: DOCUSATE SODIUM 100 MG CAPSULE PO SCH ×2 (10:44→22:15)
[2020-03-14] MEDS: VALPROIC ACID 250 MG/5 ML UDCUP PEG SCH ×2 (10:44→14:59)
[2020-03-14] MEDS: LURASIDONE 40 MG TABLET PEG SCH (17:46)
[2020-03-14] MEDS: ROSUVASTATIN 10 MG TABLET PEG SCH (22:15)
[2020-03-14] MEDS: VALPROIC ACID 250 MG/5 ML UDCUP PO SCH (22:15)
[2020-03-14] MEDS: cefTRIAXone 1,000 MG in SYRINGE 1 EACH IV SCH (22:15)
[2020-03-15] MEDS: INSULIN REGULAR 100 UNIT/ML SUBCUT SCH ×4 (01:13→17:41)
[2020-03-15] MEDS: LEVOTHYROXINE 125 MCG TABLET PEG SCH (05:45)
[2020-03-15] MEDS: MULTIVITAMIN LIQUID (CENTRUM) 60 ML BOTTLE PEG SCH (10:39)
[2020-03-15] MEDS: CALCIUM (CARBONATE)/VITAMIN D 600 MG-400 UNIT TABLET PEG SCH ×2 (10:39→21:06)
[2020-03-15] MEDS: DOCUSATE SODIUM 100 MG CAPSULE PO SCH ×2 (10:39→21:07)
[2020-03-15] MEDS: VALPROIC ACID 250 MG/5 ML UDCUP PEG SCH ×2 (10:39→13:21)
[2020-03-15] MEDS: SODIUM CHLORIDE 0.9% 1,000 ML IV SCH ×2 (10:39→14:37)
[2020-03-15] MEDS: BENZTROPINE 0.5 MG TABLET PEG SCH (10:39)
[2020-03-15] MEDS: ASCORBIC ACID 500 MG TABLET PEG SCH (10:40)
[2020-03-15] MEDS: CHOLECALCIFEROL 1,000 UNIT TABLET PEG SCH (10:40)
[2020-03-15] MEDS: FERROUS SULFATE 300 MG/5 ML UDCUP PEG SCH ×2 (10:40→21:07)
[2020-03-15] MEDS: ZINC SULFATE 220 MG CAPSULE PO SCH (13:21)
[2020-03-15] MEDS: HYDROXYCHLOROQUINE 200 MG TABLET PO SCH ×2 (13:21→21:07)
[2020-03-15] MEDS: ACETAMINOPHEN 325 MG/10.15 ML UDCUP PEG PRN (13:22)
[2020-03-15] MEDS: LURASIDONE 40 MG TABLET PEG SCH (17:41)
[2020-03-15] MEDS: VALPROIC ACID 250 MG/5 ML UDCUP PO SCH (21:07)
[2020-03-15] MEDS: ROSUVASTATIN 10 MG TABLET PEG SCH (21:07)
[2020-03-15] MEDS: cefTRIAXone 1,000 MG in SYRINGE 1 EACH IV SCH (21:08)
[2020-03-16] MEDS: ACETAMINOPHEN 325 MG/10.15 ML UDCUP PEG PRN (00:20)
[2020-03-16] MEDS: INSULIN REGULAR 100 UNIT/ML SUBCUT SCH ×4 (00:37→17:08)
[2020-03-16] MEDS: SODIUM CHLORIDE 0.9% 1,000 ML IV SCH ×2 (03:54→17:08)
[2020-03-16] MEDS: LEVOTHYROXINE 125 MCG TABLET PEG SCH (06:40)
[2020-03-16 07:01] LABS: Basophils % 0.4 % (0.0-0.8); Eosinophils % 0.2 % (0.00-10.9); Hematocrit 21.5 VOL% (35.7-47.0); Hemoglobin 6.9 GM/DL (12.0-16.0); Immature Granulocytes % 4.9 %; Immature Granulocytes Absolute 0.23 #; Lymphocytes # 1.1 10*3/uL (1.4-4.0); Lymphocytes % 22.8 % (21.3-54.2); Mean Corpuscular HGB Conc 32.1 GM/DL (32-36); Mean Corpuscular Volume 92.7 FL (87-102); Mean Platelet Volume 9.4 FL (9.6-12.0); Monocytes % 8.4 % (1.7-12.7); Neutrophils % 63.3 % (38.7-73.9); Platelet Count 156 T/CUMM (130-400); Red Blood Count 2.32 MC/CUMM (3.8-5.5); Red Cell Distribution Width 15.1 % (9.3-17.3); White Blood Count 4.7 T/CUMM (4-12)
[2020-03-16 07:29] LABS: Calcium 7.6 MG/DL (8.5-10.1); Osmolality,Calculated 277.4 MOS/KG (273-304)
[2020-03-16] MEDS: DOCUSATE SODIUM 100 MG CAPSULE PO SCH (08:48)
[2020-03-16] MEDS: FERROUS SULFATE 300 MG/5 ML UDCUP PEG SCH ×2 (08:48→20:22)
[2020-03-16] MEDS: MULTIVITAMIN LIQUID (CENTRUM) 60 ML BOTTLE PEG SCH (08:48)
[2020-03-16] MEDS: VALPROIC ACID 250 MG/5 ML UDCUP PEG SCH ×2 (08:48→11:50)
[2020-03-16] MEDS: ASCORBIC ACID 500 MG TABLET PEG SCH (08:48)
[2020-03-16] MEDS: HYDROXYCHLOROQUINE 200 MG TABLET PO SCH (08:48)
[2020-03-16] MEDS: CHOLECALCIFEROL 1,000 UNIT TABLET PEG SCH (08:48)
[2020-03-16] MEDS: CALCIUM (CARBONATE)/VITAMIN D 600 MG-400 UNIT TABLET PEG SCH ×2 (08:48→20:22)
[2020-03-16] MEDS: BENZTROPINE 0.5 MG TABLET PEG SCH (08:48)
[2020-03-16] MEDS ORDERED: SODIUM CHLORIDE 0.9% 1,000 ML IV PRN (10:41)
[2020-03-16 12:48] LABS: Hypochromasia Slight; Lymphocytes 15 % (20-55); Macrocytosis 2+; Microcytosis 2+; Platelet Estimate Adequate; Segmented Neutrophils 75 % (50-85); Total Cells Counted 100
[2020-03-16] MEDS: LURASIDONE 40 MG TABLET PEG SCH (17:08)
[2020-03-16] MEDS: ROSUVASTATIN 10 MG TABLET PEG SCH (20:22)
[2020-03-16] MEDS: VALPROIC ACID 250 MG/5 ML UDCUP PO SCH (20:22)
[2020-03-16] MEDS: cefTRIAXone 1,000 MG in SYRINGE 1 EACH IV SCH (20:25)
[2020-03-17] MEDS: DOCUSATE SODIUM 100 MG CAPSULE PO SCH ×3 (00:25→21:15)
[2020-03-17] MEDS: ACETAMINOPHEN 325 MG/10.15 ML UDCUP PEG PRN ×2 (01:26→16:37)
[2020-03-17] MEDS: INSULIN REGULAR 100 UNIT/ML SUBCUT SCH ×5 (01:35→18:25)
[2020-03-17] MEDS: LEVOTHYROXINE 125 MCG TABLET PEG SCH (06:12)
[2020-03-17 07:13] LABS: Hematocrit 35.4 VOL% (35.7-47.0); Hemoglobin 11.7 GM/DL (12.0-16.0)
[2020-03-17] MEDS: MULTIVITAMIN LIQUID (CENTRUM) 60 ML BOTTLE PEG SCH (08:57)
[2020-03-17] MEDS: ASCORBIC ACID 500 MG TABLET PEG SCH (08:57)
[2020-03-17] MEDS: CALCIUM (CARBONATE)/VITAMIN D 600 MG-400 UNIT TABLET PEG SCH ×2 (08:57→21:15)
[2020-03-17] MEDS: FERROUS SULFATE 300 MG/5 ML UDCUP PEG SCH ×2 (08:57→21:15)
[2020-03-17] MEDS: VALPROIC ACID 250 MG/5 ML UDCUP PEG SCH ×2 (08:57→11:53)
[2020-03-17] MEDS: BENZTROPINE 0.5 MG TABLET PEG SCH (08:57)
[2020-03-17] MEDS: CHOLECALCIFEROL 1,000 UNIT TABLET PEG SCH (08:58)
[2020-03-17 10:59] LABS: Basophils % 0.4 % (0.0-0.8); Eosinophils % 0.1 % (0.00-10.9); Hematocrit 35.3 VOL% (35.7-47.0); Hemoglobin 11.7 GM/DL (12.0-16.0); Immature Granulocytes % 5.1 %; Immature Granulocytes Absolute 0.38 #; Lymphocytes # 2.1 10*3/uL (1.4-4.0); Lymphocytes % 27.9 % (21.3-54.2); Mean Corpuscular HGB Conc 33.1 GM/DL (32-36); Mean Corpuscular Volume 87.8 FL (87-102); Mean Platelet Volume 10.2 FL (9.6-12.0); Monocytes % 8.7 % (1.7-12.7); Neutrophils % 57.8 % (38.7-73.9); Platelet Count 181 T/CUMM (130-400); Red Blood Count 4.02 MC/CUMM (3.8-5.5); Red Cell Distribution Width 15.8 % (9.3-17.3); White Blood Count 7.5 T/CUMM (4-12)
[2020-03-17 11:18] LABS: Osmolality,Calculated 276.8 MOS/KG (273-304)
[2020-03-17] MEDS: SODIUM CHLORIDE 0.9% 1,000 ML IV SCH ×3 (11:50→21:15)
[2020-03-17] MEDS: ZINC SULFATE 220 MG CAPSULE PO SCH (11:52)
[2020-03-17 13:18] LABS: Band Neutrophils 7 % (0-10); Lymphocytes 20 % (20-55); Myelocytes 3 %; Segmented Neutrophils 58 % (50-85); Total Cells Counted 100
[2020-03-17 13:19] LABS: Anisocytosis 2+; Hypochromasia 2+
[2020-03-17 13:20] LABS: Microcytosis Slight; Platelet Estimate Normal
[2020-03-17] MEDS: LURASIDONE 40 MG TABLET PEG SCH (17:55)
[2020-03-17] MEDS ORDERED: ACETAMINOPHEN 325 MG TABLET PO ONE (21:00)
[2020-03-17] MEDS ORDERED: OMEPRAZOLE ODT 20 MG TABLET PEG SCH (21:00)
[2020-03-17] MEDS: ROSUVASTATIN 10 MG TABLET PEG SCH (21:15)
[2020-03-17] MEDS: VALPROIC ACID 250 MG/5 ML UDCUP PO SCH (21:15)
[2020-03-17] MEDS: HYDROXYCHLOROQUINE 200 MG TABLET PO SCH (21:15)
[2020-03-17] MEDS: cefTRIAXone 1,000 MG in SYRINGE 1 EACH IV SCH (22:35)
[2020-03-18] MEDS: INSULIN REGULAR 100 UNIT/ML SUBCUT SCH ×4 (00:15→19:10)
[2020-03-18] MEDS: SODIUM CHLORIDE 0.9% 1,000 ML IV SCH ×2 (01:54→13:02)
[2020-03-18 06:03] LABS: Basophils % 0.5 % (0.0-0.8); Eosinophils % 0.1 % (0.00-10.9); Hematocrit 33.4 VOL% (35.7-47.0); Hemoglobin 10.9 GM/DL (12.0-16.0); Immature Granulocytes % 5.3 %; Immature Granulocytes Absolute 0.39 #; Lymphocytes # 1.7 10*3/uL (1.4-4.0); Lymphocytes % 23.2 % (21.3-54.2); Mean Corpuscular HGB Conc 32.6 GM/DL (32-36); Mean Corpuscular Volume 88.8 FL (87-102); Mean Platelet Volume 9.9 FL (9.6-12.0); Neutrophils % 65.9 % (38.7-73.9); Platelet Count 214 T/CUMM (130-400); Red Blood Count 3.76 MC/CUMM (3.8-5.5); Red Cell Distribution Width 15.9 % (9.3-17.3); White Blood Count 7.4 T/CUMM (4-12)
[2020-03-18 06:19] LABS: Calcium 7.9 MG/DL (8.5-10.1); Osmolality,Calculated 278.7 MOS/KG (273-304)
[2020-03-18] MEDS: LEVOTHYROXINE 125 MCG TABLET PEG SCH (06:30)
[2020-03-18 06:41] LABS: Band Neutrophils 7 % (0-10); Eosinophils 1 % (0-10); Hypochromasia 1+; Lymphocytes 29 % (20-55); Metamyelocytes 1 %; Microcytosis 1+; Myelocytes 2 %; Segmented Neutrophils 52 % (50-85); Total Cells Counted 100
[2020-03-18 06:42] LABS: Platelet Estimate Normal
[2020-03-18] MEDS: VALPROIC ACID 250 MG/5 ML UDCUP PEG SCH ×2 (08:48→17:37)
[2020-03-18] MEDS: FERROUS SULFATE 300 MG/5 ML UDCUP PEG SCH ×2 (08:48→22:43)
[2020-03-18] MEDS: CHOLECALCIFEROL 1,000 UNIT TABLET PEG SCH (08:49)
[2020-03-18] MEDS: CALCIUM (CARBONATE)/VITAMIN D 600 MG-400 UNIT TABLET PEG SCH (08:49)
[2020-03-18] MEDS: ASCORBIC ACID 500 MG TABLET PEG SCH (08:49)
[2020-03-18] MEDS: DOCUSATE SODIUM 100 MG CAPSULE PO SCH ×2 (08:49→22:43)
[2020-03-18] MEDS: OMEPRAZOLE ODT 20 MG TABLET PEG SCH ×2 (08:49→22:44)
[2020-03-18] MEDS: BENZTROPINE 0.5 MG TABLET PEG SCH (08:50)
[2020-03-18 11:27] LABS: ABG Base Excess 1.8 MMOL/L (-2.5-2.5); ABG HCO3 25.9 MMOL/L (20-26); ABG Oxygen Saturation 91.3 % (95-100); ABG PCO2 28.3 MM HG (35-48); ABG PH 7.532 (7.35-7.45); ABG PO2 53.4 MM HG (80-95); ABG TCO2 21.3 MMOL/L (23-27)
[2020-03-18] MEDS ORDERED: FUROSEMIDE 40 MG/4 ML VIAL IV ONE (15:00)
[2020-03-18] MEDS: LEVOFLOXACIN 500 MG TABLET PER TUBE SCH (17:37)
[2020-03-18] MEDS: MULTIVITAMIN LIQUID (CENTRUM) 60 ML BOTTLE PEG SCH (17:38)
[2020-03-18] MEDS: LURASIDONE 40 MG TABLET PEG SCH (22:42)
[2020-03-18] MEDS: ROSUVASTATIN 10 MG TABLET PEG SCH (22:43)
[2020-03-18] MEDS: VALPROIC ACID 250 MG/5 ML UDCUP PO SCH (22:43)
[2020-03-18] MEDS: cefTRIAXone 1,000 MG in SYRINGE 1 EACH IV SCH (22:44)
[2020-03-19] MEDS: INSULIN REGULAR 100 UNIT/ML SUBCUT SCH ×4 (00:05→18:15)
[2020-03-19] MEDS: LEVOTHYROXINE 125 MCG TABLET PEG SCH (06:08)
[2020-03-19] MEDS: VALPROIC ACID 250 MG/5 ML UDCUP PEG SCH ×2 (09:06→12:57)
[2020-03-19] MEDS: FERROUS SULFATE 300 MG/5 ML UDCUP PEG SCH ×2 (09:07→20:30)
[2020-03-19] MEDS: OMEPRAZOLE ODT 20 MG TABLET PEG SCH ×2 (09:07→20:05)
[2020-03-19] MEDS: ASCORBIC ACID 500 MG TABLET PEG SCH (09:07)
[2020-03-19] MEDS: LEVOFLOXACIN 500 MG TABLET PER TUBE SCH (09:08)
[2020-03-19] MEDS: BENZTROPINE 0.5 MG TABLET PEG SCH (09:08)
[2020-03-19] MEDS: CHOLECALCIFEROL 1,000 UNIT TABLET PEG SCH (09:08)
[2020-03-19] MEDS: DOCUSATE SODIUM 100 MG CAPSULE PO SCH ×2 (09:08→20:30)
[2020-03-19] MEDS: MULTIVITAMIN LIQUID (CENTRUM) 60 ML BOTTLE PEG SCH (09:10)
[2020-03-19 10:47] LABS: ABG Base Excess 2.4 MMOL/L (-2.5-2.5); ABG HCO3 25.4 MMOL/L (20-26); ABG PH 7.492 (7.35-7.45); ABG TCO2 26.5 MMOL/L (23-27)
[2020-03-19 10:49] LABS: ABG PO2 40.5 MM HG (80-95)
[2020-03-19 12:41] LABS: Basophils % 0.2 % (0.0-0.8); Eosinophils % 0.1 % (0.00-10.9); Hemoglobin 10.1 GM/DL (12.0-16.0); Immature Granulocytes % 6.4 %; Immature Granulocytes Absolute 0.56 #; Lymphocytes # 1.5 10*3/uL (1.4-4.0); Lymphocytes % 17.3 % (21.3-54.2); Mean Corpuscular HGB Conc 32.6 GM/DL (32-36); Mean Corpuscular Volume 88.8 FL (87-102); Mean Platelet Volume 9.3 FL (9.6-12.0); Monocytes % 4.6 % (1.7-12.7); Neutrophils % 71.4 % (38.7-73.9); Platelet Count 246 T/CUMM (130-400); Red Blood Count 3.49 MC/CUMM (3.8-5.5); Red Cell Distribution Width 16.4 % (9.3-17.3); White Blood Count 8.8 T/CUMM (4-12)
[2020-03-19] MEDS: ZINC SULFATE 220 MG CAPSULE PO SCH (12:58)
[2020-03-19 13:04] LABS: Osmolality,Calculated 279.1 MOS/KG (273-304)
[2020-03-19 13:11] LABS: Anisocytosis 2+; Band Neutrophils 24 % (0-10); Eosinophils 1 % (0-10); Lymphocytes 11 % (20-55); Macrocytosis Slight; Metamyelocytes 4 %; Platelet Estimate Normal; Segmented Neutrophils 56 % (50-85); Smudge Cells Few; Total Cells Counted 100
[2020-03-19] MEDS ORDERED: ZINC SULFATE 220 MG CAPSULE PO SCH (14:00)
[2020-03-19] MEDS: LURASIDONE 40 MG TABLET PEG SCH (18:16)
[2020-03-19] MEDS: cefTRIAXone 1,000 MG in SYRINGE 1 EACH IV SCH (20:05)
[2020-03-19] MEDS: VALPROIC ACID 250 MG/5 ML UDCUP PO SCH (20:30)
[2020-03-19] MEDS: ACETAMINOPHEN 325 MG/10.15 ML UDCUP PEG PRN (20:30)
[2020-03-19] MEDS: ROSUVASTATIN 10 MG TABLET PEG SCH (20:30)
[2020-03-20] MEDS: ACETAMINOPHEN 325 MG/10.15 ML UDCUP PEG PRN (00:55)
[2020-03-20] MEDS: INSULIN REGULAR 100 UNIT/ML SUBCUT SCH ×4 (01:40→17:04)
[2020-03-20] MEDS: LEVOTHYROXINE 125 MCG TABLET PEG SCH (05:17)
[2020-03-20 06:16] LABS: Basophils # 0.1 10*3/uL (0.0-0.2); Basophils % 0.4 % (0.0-0.8); Eosinophils % 0.2 % (0.00-10.9); Hematocrit 28.9 VOL% (35.7-47.0); Hemoglobin 9.6 GM/DL (12.0-16.0); Immature Granulocytes % 7.1 %; Lymphocytes # 1.7 10*3/uL (1.4-4.0); Lymphocytes % 15.4 % (21.3-54.2); Mean Corpuscular HGB Conc 33.2 GM/DL (32-36); Mean Corpuscular Volume 87.3 FL (87-102); Mean Platelet Volume 9.7 FL (9.6-12.0); Monocytes % 7.5 % (1.7-12.7); Neutrophils % 69.4 % (38.7-73.9); Platelet Count 282 T/CUMM (130-400); Red Blood Count 3.31 MC/CUMM (3.8-5.5); Red Cell Distribution Width 16.7 % (9.3-17.3); White Blood Count 11.2 T/CUMM (4-12)
[2020-03-20 06:39] LABS: Alanine Aminotransferase < 9 U/L (13-56); Albumin 1.2 G/DL (3.4-5.0); Alkaline Phosphatase 72 U/L (45-117); Aspartate Amino Transferase 31 U/L (0-37); Bilirubin,Total < 0.39 MG/DL (0.2-1.0); Blood Urea Nitrogen 23 MG/DL (7-18); Calcium 8.1 MG/DL (8.5-10.1); Estimated Glom Filtration Rate 95 ML/MIN; Glucose 119 MG/DL (74-106); Osmolality,Calculated 277.8 MOS/KG (273-304); Total Protein 6.3 G/DL (6.4-8.3)
[2020-03-20 06:41] LABS: Band Neutrophils 2 % (0-10); Hypochromasia 1+; Lymphocytes 19 % (20-55); Platelet Estimate Adequate; Segmented Neutrophils 70 % (50-85); Total Cells Counted 100
[2020-03-20 06:42] LABS: Microcytosis Slight
[2020-03-20] MEDS: FERROUS SULFATE 300 MG/5 ML UDCUP PEG SCH ×2 (08:28→21:50)
[2020-03-20] MEDS: CHOLECALCIFEROL 1,000 UNIT TABLET PEG SCH (08:28)
[2020-03-20] MEDS: VALPROIC ACID 250 MG/5 ML UDCUP PEG SCH ×2 (08:29→13:40)
[2020-03-20] MEDS: BENZTROPINE 0.5 MG TABLET PEG SCH (08:29)
[2020-03-20] MEDS: ASCORBIC ACID 500 MG TABLET PEG SCH (08:29)
[2020-03-20] MEDS: DOCUSATE SODIUM 100 MG CAPSULE PO SCH ×2 (08:29→21:50)
[2020-03-20] MEDS: OMEPRAZOLE ODT 20 MG TABLET PEG SCH ×2 (08:29→21:50)
[2020-03-20 12:16] LABS: ABG Base Excess 3.3 MMOL/L (-2.5-2.5); ABG HCO3 27.2 MMOL/L (20-26); ABG Oxygen Saturation 89.9 % (95-100); ABG PCO2 40.5 MM HG (35-48); ABG PH 7.442 (7.35-7.45); ABG PO2 52.9 MM HG (80-95); ABG TCO2 24.8 MMOL/L (23-27)
[2020-03-20] MEDS: MULTIVITAMIN LIQUID (CENTRUM) 60 ML BOTTLE PEG SCH ×2 (12:55→13:40)
[2020-03-20] MEDS ORDERED: MORPHINE 4 MG/1 ML VIAL IV PRN (17:21)
[2020-03-20] MEDS ORDERED: LORazepam 2 MG/1 ML VIAL IV PRN (17:22)
[2020-03-20] MEDS: LURASIDONE 40 MG TABLET PEG SCH (17:42)
[2020-03-20] MEDS: ROSUVASTATIN 10 MG TABLET PEG SCH (21:50)
[2020-03-20] MEDS: VALPROIC ACID 250 MG/5 ML UDCUP PO SCH (21:50)
[2020-03-21] MEDS: INSULIN REGULAR 100 UNIT/ML SUBCUT SCH ×4 (00:49→17:21)
[2020-03-21] MEDS: LEVOTHYROXINE 125 MCG TABLET PEG SCH (05:09)
[2020-03-21] MEDS: OMEPRAZOLE ODT 20 MG TABLET PEG SCH ×2 (09:26→21:22)
[2020-03-21] MEDS: FERROUS SULFATE 300 MG/5 ML UDCUP PEG SCH ×2 (09:26→21:22)
[2020-03-21] MEDS: VALPROIC ACID 250 MG/5 ML UDCUP PEG SCH ×2 (09:26→13:19)
[2020-03-21] MEDS: CHOLECALCIFEROL 1,000 UNIT TABLET PEG SCH (09:26)
[2020-03-21] MEDS: BENZTROPINE 0.5 MG TABLET PEG SCH (09:27)
[2020-03-21] MEDS: ASCORBIC ACID 500 MG TABLET PEG SCH (09:27)
[2020-03-21] MEDS: DOCUSATE SODIUM 100 MG CAPSULE PO SCH ×2 (09:27→21:22)
[2020-03-21] MEDS: MULTIVITAMIN LIQUID (CENTRUM) 60 ML BOTTLE PEG SCH (13:20)
[2020-03-21 13:55] LABS: Hematocrit 29.3 VOL% (35.7-47.0); Hemoglobin 9.5 GM/DL (12.0-16.0)
[2020-03-21] MEDS: LURASIDONE 40 MG TABLET PEG SCH (17:02)
[2020-03-21] MEDS: MENTHOL/ZINC OXIDE OINT 71 GM JAR TOP SCH (17:02)
[2020-03-21] MEDS: ROSUVASTATIN 10 MG TABLET PEG SCH (21:22)
[2020-03-21] MEDS: VALPROIC ACID 250 MG/5 ML UDCUP PO SCH (21:22)
[2020-03-22] MEDS: INSULIN REGULAR 100 UNIT/ML SUBCUT SCH ×5 (00:39→18:49)
[2020-03-22] MEDS: LEVOTHYROXINE 125 MCG TABLET PEG SCH (06:25)
[2020-03-22] MEDS: VALPROIC ACID 250 MG/5 ML UDCUP PEG SCH ×2 (08:22→11:40)
[2020-03-22] MEDS: FERROUS SULFATE 300 MG/5 ML UDCUP PEG SCH ×2 (08:22→20:30)
[2020-03-22] MEDS: CHOLECALCIFEROL 1,000 UNIT TABLET PEG SCH (08:23)
[2020-03-22] MEDS: BENZTROPINE 0.5 MG TABLET PEG SCH (08:23)
[2020-03-22] MEDS: OMEPRAZOLE ODT 20 MG TABLET PEG SCH ×2 (08:23→20:30)
[2020-03-22] MEDS: ASCORBIC ACID 500 MG TABLET PEG SCH (08:23)
[2020-03-22] MEDS: DOCUSATE SODIUM 100 MG CAPSULE PO SCH ×2 (08:24→20:30)
[2020-03-22] MEDS: MENTHOL/ZINC OXIDE OINT 71 GM JAR TOP SCH (08:24)
[2020-03-22 09:15] LABS: Basophils # 0.1 10*3/uL (0.0-0.2); Basophils % 0.5 % (0.0-0.8); Eosinophils % 0.2 % (0.00-10.9); Hemoglobin 9.4 GM/DL (12.0-16.0); Immature Granulocytes % 8.6 %; Immature Granulocytes Absolute 1.05 #; Lymphocytes # 1.5 10*3/uL (1.4-4.0); Lymphocytes % 11.9 % (21.3-54.2); Mean Corpuscular HGB Conc 32.4 GM/DL (32-36); Mean Corpuscular Volume 88.7 FL (87-102); Mean Platelet Volume 9.6 FL (9.6-12.0); Monocytes % 15.5 % (1.7-12.7); Neutrophils % 63.3 % (38.7-73.9); Platelet Count 355 T/CUMM (130-400); Red Blood Count 3.27 MC/CUMM (3.8-5.5); Red Cell Distribution Width 16.9 % (9.3-17.3); White Blood Count 12.2 T/CUMM (4-12)
[2020-03-22 09:31] LABS: Calcium 8.4 MG/DL (8.5-10.1); Osmolality,Calculated 284.7 MOS/KG (273-304)
[2020-03-22 09:54] LABS: Anisocytosis 1+; Band Neutrophils 17 % (0-10); Lymphocytes 12 % (20-55); Macrocytosis 1+; Metamyelocytes 5 %; Myelocytes 3 %; Nucleated Red Blood Cells 1 (0-5); Platelet Estimate Normal; Segmented Neutrophils 50 % (50-85); Total Cells Counted 100
[2020-03-22 09:55] LABS: Atypical Lymphocytes Few
[2020-03-22] MEDS ORDERED: AMIODARONE INJ 150 MG in DEXTROSE 5% 100 ML IV ONE (11:30)
[2020-03-22] MEDS ORDERED: SODIUM CHLORIDE 0.9% 300 ML IV ONE (11:40)
[2020-03-22] MEDS: MULTIVITAMIN LIQUID (CENTRUM) 60 ML BOTTLE PEG SCH (11:40)
[2020-03-22] MEDS ORDERED: ACETAMINOPHEN 325 MG TABLET PO ONE (12:05)
[2020-03-22] MEDS ORDERED: ACETAMINOPHEN 325 MG TABLET PO PRN (12:07)
[2020-03-22] MEDS ORDERED: MIDODRINE 5 MG TABLET PO SCH (15:00)
[2020-03-22] MEDS: FLUDROCORTISONE 0.1 MG TABLET PO SCH ×2 (16:15→20:30)
[2020-03-22] MEDS: LURASIDONE 40 MG TABLET PEG SCH (18:49)
[2020-03-22] MEDS: ROSUVASTATIN 10 MG TABLET PEG SCH (20:30)
[2020-03-22] MEDS: VALPROIC ACID 250 MG/5 ML UDCUP PO SCH (20:30)
[2020-03-23] MEDS: INSULIN REGULAR 100 UNIT/ML SUBCUT SCH ×5 (00:10→23:48)
[2020-03-23 05:33] LABS: Basophils # 0.1 10*3/uL (0.0-0.2); Basophils % 0.5 % (0.0-0.8); Eosinophils # 0.1 10*3/uL (0.0-0.87); Eosinophils % 0.6 % (0.00-10.9); Hematocrit 28.9 VOL% (35.7-47.0); Hemoglobin 9.3 GM/DL (12.0-16.0); Immature Granulocytes % 10.2 %; Immature Granulocytes Absolute 0.95 #; Lymphocytes # 1.7 10*3/uL (1.4-4.0); Lymphocytes % 18.2 % (21.3-54.2); Mean Corpuscular HGB Conc 32.2 GM/DL (32-36); Mean Corpuscular Volume 89.2 FL (87-102); Mean Platelet Volume 9.3 FL (9.6-12.0); Monocytes % 16.1 % (1.7-12.7); Neutrophils % 54.4 % (38.7-73.9); Platelet Count 318 T/CUMM (130-400); Red Blood Count 3.24 MC/CUMM (3.8-5.5); White Blood Count 9.3 T/CUMM (4-12)
[2020-03-23] MEDS: LEVOTHYROXINE 125 MCG TABLET PEG SCH (05:50)
[2020-03-23 06:01] LABS: Band Neutrophils 3 % (0-10); Hypochromasia 1+; Lymphocytes 25 % (20-55); Myelocytes 1 %; Platelet Estimate Adequate; Segmented Neutrophils 52 % (50-85); Total Cells Counted 100
[2020-03-23 06:02] LABS: Atypical Lymphocytes Few; Microcytosis Slight
[2020-03-23 06:03] LABS: Ferritin 1570.4 ng/ml (8-252)
[2020-03-23] MEDS: MENTHOL/ZINC OXIDE OINT 71 GM JAR TOP SCH (08:15)
[2020-03-23] MEDS: VALPROIC ACID 250 MG/5 ML UDCUP PEG SCH ×2 (08:15→12:38)
[2020-03-23] MEDS: OMEPRAZOLE ODT 20 MG TABLET PEG SCH ×2 (08:15→20:31)
[2020-03-23] MEDS: CHOLECALCIFEROL 1,000 UNIT TABLET PEG SCH (08:15)
[2020-03-23] MEDS: ASCORBIC ACID 500 MG TABLET PEG SCH (08:15)
[2020-03-23] MEDS: FLUDROCORTISONE 0.1 MG TABLET PO SCH ×2 (08:15→20:31)
[2020-03-23] MEDS: FERROUS SULFATE 300 MG/5 ML UDCUP PEG SCH ×2 (08:15→20:31)
[2020-03-23] MEDS: BENZTROPINE 0.5 MG TABLET PEG SCH (08:15)
[2020-03-23] MEDS: DOCUSATE SODIUM 100 MG CAPSULE PO SCH ×2 (09:53→20:31)
[2020-03-23] MEDS ORDERED: LACTATED RINGERS 500 ML IV ONE (11:44)
[2020-03-23] MEDS: MULTIVITAMIN LIQUID (CENTRUM) 60 ML BOTTLE PEG SCH (12:38)
[2020-03-23] MEDS: LURASIDONE 40 MG TABLET PEG SCH (18:20)
[2020-03-23] MEDS: VALPROIC ACID 250 MG/5 ML UDCUP PO SCH (20:31)
[2020-03-23] MEDS: ROSUVASTATIN 10 MG TABLET PEG SCH (20:31)
[2020-03-24] MEDS: LEVOTHYROXINE 125 MCG TABLET PEG SCH (05:13)
[2020-03-24] MEDS: INSULIN REGULAR 100 UNIT/ML SUBCUT SCH ×3 (06:08→18:27)
[2020-03-24 06:49] LABS: Basophils # 0.1 10*3/uL (0.0-0.2); Eosinophils % 0.5 % (0.00-10.9); Hemoglobin 9.6 GM/DL (12.0-16.0); Immature Granulocytes % 10.9 %; Lymphocytes # 1.6 10*3/uL (1.4-4.0); Lymphocytes % 18.8 % (21.3-54.2); Mean Corpuscular Volume 88.8 FL (87-102); Mean Platelet Volume 9.4 FL (9.6-12.0); Monocytes % 19.5 % (1.7-12.7); Neutrophils % 49.3 % (38.7-73.9); Platelet Count 289 T/CUMM (130-400); Red Blood Count 3.38 MC/CUMM (3.8-5.5); Red Cell Distribution Width 17.3 % (9.3-17.3); White Blood Count 8.3 T/CUMM (4-12)
[2020-03-24 07:25] LABS: Calcium 8.9 MG/DL (8.5-10.1); Osmolality,Calculated 293.8 MOS/KG (273-304)
[2020-03-24 07:30] LABS: Ferritin 1103.1 ng/ml (8-252)
[2020-03-24 08:03] LABS: Atypical Lymphocytes Few; Band Neutrophils 3 % (0-10); Eosinophils 1 % (0-10); Hypochromasia 2+; Lymphocytes 26 % (20-55); Microcytosis Slight; Platelet Estimate Adequate; Segmented Neutrophils 52 % (50-85); Total Cells Counted 100
[2020-03-24] MEDS: FERROUS SULFATE 300 MG/5 ML UDCUP PEG SCH ×2 (08:30→20:09)
[2020-03-24] MEDS: MENTHOL/ZINC OXIDE OINT 71 GM JAR TOP SCH (08:30)
[2020-03-24] MEDS: OMEPRAZOLE ODT 20 MG TABLET PEG SCH ×2 (08:30→20:09)
[2020-03-24] MEDS: CHOLECALCIFEROL 1,000 UNIT TABLET PEG SCH (08:30)
[2020-03-24] MEDS: BENZTROPINE 0.5 MG TABLET PEG SCH (08:30)
[2020-03-24] MEDS: FLUDROCORTISONE 0.1 MG TABLET PO SCH ×2 (08:30→20:09)
[2020-03-24] MEDS: VALPROIC ACID 250 MG/5 ML UDCUP PEG SCH ×2 (08:30→12:40)
[2020-03-24] MEDS: ASCORBIC ACID 500 MG TABLET PEG SCH (08:30)
[2020-03-24] MEDS: DOCUSATE SODIUM 100 MG CAPSULE PO SCH ×2 (09:32→20:09)
[2020-03-24] MEDS ORDERED: LACTATED RINGERS 500 ML IV ONE (09:47)
[2020-03-24] MEDS: MULTIVITAMIN LIQUID (CENTRUM) 60 ML BOTTLE PEG SCH (12:40)
[2020-03-24] MEDS: LURASIDONE 40 MG TABLET PEG SCH (18:48)
[2020-03-24] MEDS: VALPROIC ACID 250 MG/5 ML UDCUP PO SCH (20:09)
[2020-03-24] MEDS: ROSUVASTATIN 10 MG TABLET PEG SCH (20:09)
[2020-03-25] MEDS: INSULIN REGULAR 100 UNIT/ML SUBCUT SCH ×4 (00:44→18:38)
[2020-03-25 05:31] LABS: Basophils # 0.1 10*3/uL (0.0-0.2); Basophils % 0.6 % (0.0-0.8); Eosinophils # 0.1 10*3/uL (0.0-0.87); Eosinophils % 0.6 % (0.00-10.9); Hematocrit 30.3 VOL% (35.7-47.0); Hemoglobin 9.6 GM/DL (12.0-16.0); Immature Granulocytes % 9.8 %; Immature Granulocytes Absolute 0.84 #; Lymphocytes # 1.9 10*3/uL (1.4-4.0); Lymphocytes % 21.7 % (21.3-54.2); Mean Corpuscular HGB Conc 31.7 GM/DL (32-36); Mean Corpuscular Volume 90.7 FL (87-102); Mean Platelet Volume 9.7 FL (9.6-12.0); Monocytes % 19.9 % (1.7-12.7); Neutrophils % 47.4 % (38.7-73.9); Platelet Count 269 T/CUMM (130-400); Red Blood Count 3.34 MC/CUMM (3.8-5.5); Red Cell Distribution Width 17.5 % (9.3-17.3); White Blood Count 8.5 T/CUMM (4-12)
[2020-03-25 05:55] LABS: Calcium 8.6 MG/DL (8.5-10.1); Osmolality,Calculated 298.3 MOS/KG (273-304)
[2020-03-25 05:57] LABS: Ferritin 796.9 ng/ml (8-252)
[2020-03-25 06:00] LABS: Eosinophils 3 % (0-10); Lymphocytes 23 % (20-55); Platelet Estimate Adequate; Segmented Neutrophils 55 % (50-85); Total Cells Counted 100
[2020-03-25 06:01] LABS: Hypochromasia 1+
[2020-03-25 06:02] LABS: Microcytosis Slight
[2020-03-25] MEDS: LEVOTHYROXINE 125 MCG TABLET PEG SCH (06:05)
[2020-03-25] MEDS: BENZTROPINE 0.5 MG TABLET PEG SCH (10:25)
[2020-03-25] MEDS: MENTHOL/ZINC OXIDE OINT 71 GM JAR TOP SCH (10:25)
[2020-03-25] MEDS: ASCORBIC ACID 500 MG TABLET PEG SCH (10:25)
[2020-03-25] MEDS: VALPROIC ACID 250 MG/5 ML UDCUP PEG SCH ×2 (10:25→13:20)
[2020-03-25] MEDS: FLUDROCORTISONE 0.1 MG TABLET PO SCH ×2 (10:25→21:40)
[2020-03-25] MEDS: FERROUS SULFATE 300 MG/5 ML UDCUP PEG SCH ×2 (10:25→21:40)
[2020-03-25] MEDS: CHOLECALCIFEROL 1,000 UNIT TABLET PEG SCH (10:25)
[2020-03-25] MEDS: DOCUSATE SODIUM 100 MG CAPSULE PO SCH ×2 (10:25→21:39)
[2020-03-25] MEDS: OMEPRAZOLE ODT 20 MG TABLET PEG SCH ×2 (10:26→21:39)
[2020-03-25] MEDS: MULTIVITAMIN LIQUID (CENTRUM) 60 ML BOTTLE PEG SCH (13:20)
[2020-03-25] MEDS: LURASIDONE 40 MG TABLET PEG SCH (18:38)
[2020-03-25] MEDS: ROSUVASTATIN 10 MG TABLET PEG SCH (21:39)
[2020-03-25] MEDS: VALPROIC ACID 250 MG/5 ML UDCUP PO SCH (21:39)
[2020-03-26] MEDS: INSULIN REGULAR 100 UNIT/ML SUBCUT SCH ×3 (00:07→11:58)
[2020-03-26 05:36] LABS: Basophils # 0.1 10*3/uL (0.0-0.2); Basophils % 0.7 % (0.0-0.8); Eosinophils # 0.1 10*3/uL (0.0-0.87); Eosinophils % 0.6 % (0.00-10.9); Hematocrit 29.4 VOL% (35.7-47.0); Hemoglobin 9.2 GM/DL (12.0-16.0); Immature Granulocytes % 8.5 %; Immature Granulocytes Absolute 0.84 #; Lymphocytes # 2.3 10*3/uL (1.4-4.0); Lymphocytes % 23.5 % (21.3-54.2); Mean Corpuscular HGB Conc 31.3 GM/DL (32-36); Mean Corpuscular Volume 90.7 FL (87-102); Mean Platelet Volume 9.5 FL (9.6-12.0); Monocytes % 19.5 % (1.7-12.7); NRBC # 0.02 10*3/uL; Neutrophils % 47.2 % (38.7-73.9); Platelet Count 299 T/CUMM (130-400); Red Blood Count 3.24 MC/CUMM (3.8-5.5); Red Cell Distribution Width 17.5 % (9.3-17.3); White Blood Count 9.8 T/CUMM (4-12)
[2020-03-26] MEDS: LEVOTHYROXINE 125 MCG TABLET PEG SCH (05:48)
[2020-03-26 06:01] LABS: Band Neutrophils 2 % (0-10); Hypochromasia 1+; Lymphocytes 26 % (20-55); Microcytosis Slight; Myelocytes 1 %; Nucleated Red Blood Cells 1 (0-5); Platelet Estimate Adequate; Segmented Neutrophils 50 % (50-85); Total Cells Counted 100
[2020-03-26 06:02] LABS: Atypical Lymphocytes Few
[2020-03-26 06:13] LABS: Ferritin 642.5 ng/ml (8-252)
[2020-03-26] MEDS: ASCORBIC ACID 500 MG TABLET PEG SCH (08:14)
[2020-03-26] MEDS: CHOLECALCIFEROL 1,000 UNIT TABLET PEG SCH (08:14)
[2020-03-26] MEDS: FERROUS SULFATE 300 MG/5 ML UDCUP PEG SCH (08:15)
[2020-03-26] MEDS: VALPROIC ACID 250 MG/5 ML UDCUP PEG SCH ×2 (08:15→11:21)
[2020-03-26] MEDS: FLUDROCORTISONE 0.1 MG TABLET PO SCH (08:15)
[2020-03-26] MEDS: BENZTROPINE 0.5 MG TABLET PEG SCH (08:16)
[2020-03-26] MEDS: OMEPRAZOLE ODT 20 MG TABLET PEG SCH (08:16)
[2020-03-26] MEDS: DOCUSATE SODIUM 100 MG CAPSULE PO SCH (08:17)
[2020-03-26] MEDS: MENTHOL/ZINC OXIDE OINT 71 GM JAR TOP SCH (08:17)
[2020-03-26] MEDS: MULTIVITAMIN LIQUID (CENTRUM) 60 ML BOTTLE PEG SCH (11:26)
[2020-03-26 11:30] VITALS: BP 116/50
== END 2020-03-26 13:40 | disposition hospice, home (50) | DRG 871 ==
LOC: EDUNIT# → EDBD → N.ED 17:42 → SUATTDRO 22:06 → N.EDINP 22:06 → SUPCPDRO 22:06 → N.TELES 03-12 11:54 → N.2E 03-13 09:09 → N.EDINP 03-22 10:30 → N.2W 03-22 10:38
PROVIDERS: ADMIT Internal Medicine; ATTEND Internal Medicine

== ENCOUNTER 2020-08-05 02:46 | Inpatient (IN) ==
[2020-08-05] MEDS ORDERED: INSULIN REGULAR 100 UNIT/ML IV STA (02:54)
[2020-08-05] MEDS ORDERED: SODIUM CHLORIDE 0.9% 1,000 ML IV STA ×2 (02:54→04:19)
[2020-08-05 03:15] LABS: ABG Base Excess 4.5 MMOL/L (-2.5-2.5); ABG HCO3 28.5 MMOL/L (20-26); ABG Oxygen Saturation 93.9 % (95-100); ABG PCO2 35.6 MM HG (35-48); ABG PH 7.501 (7.35-7.45); ABG PO2 68.9 MM HG (80-95); Allen Test Positive; Pt O2 Delivery Device Room Air
[2020-08-05 03:24] LABS: Basophils # 0.1 10*3/uL (0.0-0.2); Basophils % 0.2 % (0.0-0.8); Eosinophils % 0.1 % (0.00-10.9); Hematocrit 26.5 VOL% (35.7-47.0); Hemoglobin 7.7 GM/DL (12.0-16.0); Immature Granulocytes % 1.5 %; Immature Granulocytes Absolute 0.53 #; Lymphocytes # 1.9 10*3/uL (1.4-4.0); Lymphocytes % 5.4 % (21.3-54.2); Mean Corpuscular HGB Conc 29.1 GM/DL (32-36); Mean Corpuscular Volume 83.9 FL (87-102); Monocytes % 6.3 % (1.7-12.7); Neutrophils % 86.5 % (38.7-73.9); Platelet Count 943 T/CUMM (130-400); Red Blood Count 3.16 MC/CUMM (3.8-5.5); Red Cell Distribution Width 15.7 % (9.3-17.3); White Blood Count 34.4 T/CUMM (4-12)
[2020-08-05 03:46] LABS: Alanine Aminotransferase 56 U/L (13-56); Albumin 1.8 G/DL (3.4-5.0); Alkaline Phosphatase 185 U/L (45-117); Aspartate Amino Transferase 41 U/L (0-37); Bilirubin,Total < 0.39 MG/DL (0.2-1.0); Blood Urea Nitrogen 57 MG/DL (7-18); Estimated Glom Filtration Rate 85 ML/MIN; Glucose 469 MG/DL (74-106); Osmolality,Calculated 328.4 MOS/KG (273-304); Total Protein 9.6 G/DL (6.4-8.3)
[2020-08-05 04:06] LABS: Bacteria,Urine Many /HPF (Few); Bilirubin,Urine Negative (Negative); Blood, Urine Moderate mg/dL (Negative); Glucose,Urine (UA) >=500 mg/dL (Negative); Granular Casts,Urine 14 /LPF (0-1); Ketones,Urine Negative (Negative); Mucus,Urine Moderate /LPF (Occasional); Nitrite,Urine Negative (Negative); Protein,Urine 100 MG/DL; RBC,Urine 6 /HPF (0-4); Urine Appearance CLOUDY (Clear); Urine Color Amber (Yellow); Urine Specific Gravity 1.022 (1.001-1.035); WBC,Urine 463 /HPF (0-6)
[2020-08-05 04:17] LABS: Hypochromasia 2+; Lymphocytes 4 % (20-55); Microcytosis 1+; Platelet Estimate Increased; Segmented Neutrophils 92 % (50-85); Total Cells Counted 100
[2020-08-05] MEDS ORDERED: PIPERACILLIN/TAZOBACTAM 3,375 MG in SODIUM CHLORIDE 0.9% 100 ML IV STA (04:19)
[2020-08-05] MEDS ORDERED: ACETAMINOPHEN 325 MG TABLET PO PRN (05:54)
[2020-08-05] MEDS ORDERED: GLUCAGON 1 MG VIAL IM PRN (05:54)
[2020-08-05] MEDS ORDERED: DEXTROSE 50% 25 GM/50 ML VIAL IV PRN (05:54)
[2020-08-05] MEDS ORDERED: LACTULOSE 20 GM/30 ML UDCUP PO PRN (05:54)
[2020-08-05] MEDS ORDERED: ONDANSETRON 4 MG/2 ML VIAL IV PRN (05:54)
[2020-08-05] MEDS ORDERED: MAGNESIUM SULF RIDER 4 GM in PREMIX 1 EACH IV PRN (06:06)
[2020-08-05] MEDS ORDERED: MAGNESIUM SULF RIDER 2 GM in PREMIX 1 EACH IV PRN (06:06)
[2020-08-05] MEDS ORDERED: METHYL SALICYLATE 60 ML BOTTLE TOP PRN (10:53)
[2020-08-05] MEDS: INSULIN LISPRO 100 UNIT/ML SUBCUT SCH ×4 (11:25→20:55)
[2020-08-05] MEDS: cefTRIAXone 2,000 MG in SYRINGE 1 EACH IV SCH (11:29)
[2020-08-05] MEDS: SODIUM HYPOCHLORITE 0.25% IRRIG 473 ML BOTTLE TOP SCH (13:56)
[2020-08-06] MEDS: SODIUM CHLORIDE 0.9% 1,000 ML IV SCH ×2 (00:57→03:38)
[2020-08-06 05:23] LABS: Basophils % 0.2 % (0.0-0.8); Hematocrit 25.6 VOL% (35.7-47.0); Hemoglobin 7.3 GM/DL (12.0-16.0); Immature Granulocytes % 1.7 %; Immature Granulocytes Absolute 0.42 #; Lymphocytes # 1.4 10*3/uL (1.4-4.0); Lymphocytes % 5.5 % (21.3-54.2); Mean Corpuscular HGB Conc 28.5 GM/DL (32-36); Mean Platelet Volume 9.7 FL (9.6-12.0); Monocytes % 4.5 % (1.7-12.7); Neutrophils % 88.1 % (38.7-73.9); Platelet Count 778 T/CUMM (130-400); Red Blood Count 3.01 MC/CUMM (3.8-5.5); White Blood Count 24.9 T/CUMM (4-12)
[2020-08-06 05:44] LABS: Albumin 1.4 G/DL (3.4-5.0); Bilirubin,Total 0.6 MG/DL (0.2-1.0); Calcium 9.1 MG/DL (8.5-10.1); Osmolality,Calculated 332.3 MOS/KG (273-304); Total Protein 7.8 G/DL (6.4-8.3)
[2020-08-06 05:46] LABS: Calcium 9.1 MG/DL (8.5-10.1); Osmolality,Calculated 332.3 MOS/KG (273-304)
[2020-08-06 05:46] LABS: Band Neutrophils 3 % (0-10); Lymphocytes 3 % (20-55); Platelet Estimate Adequate; Segmented Neutrophils 86 % (50-85); Total Cells Counted 100
[2020-08-06 05:47] LABS: Hypochromasia 2+; Microcytosis 1+
[2020-08-06] MEDS: cefTRIAXone 2,000 MG in SYRINGE 1 EACH IV SCH (09:29)
[2020-08-06] MEDS: DEXTROSE 5% 1,000 ML IV SCH (09:29)
[2020-08-06] MEDS: INSULIN LISPRO 100 UNIT/ML SUBCUT SCH ×4 (09:30→21:06)
[2020-08-06] MEDS: POTASSIUM CHLORIDE 20 MEQ TABLET PO PRN (09:30)
[2020-08-06] MEDS: SODIUM HYPOCHLORITE 0.25% IRRIG 473 ML BOTTLE TOP SCH (09:31)
[2020-08-06] MEDS ORDERED: fentaNYL 12 MCG/HR PATCH TRANSDERM SCH (11:00)
[2020-08-06] MEDS ORDERED: POTASSIUM PHOSPHATE 30 MMOL in SODIUM CHLORIDE 0.9% 250 ML IV ONE (11:00)
[2020-08-06] MEDS: INSULIN GLARGINE 100 UNIT/ML SUBCUT SCH (13:57)
[2020-08-06] MEDS ORDERED: SODIUM CHLORIDE 0.9% 1,000 ML IV PRN ×2 (14:25→17:44)
[2020-08-06] MEDS ORDERED: diphenhydrAMINE CAP 25 MG CAPSULE PO ONE ×2 (14:30→21:00)
[2020-08-06] MEDS ORDERED: ACETAMINOPHEN 325 MG TABLET PO ONE ×2 (14:30→21:00)
[2020-08-06] MEDS ORDERED: FUROSEMIDE 20 MG/2 ML VIAL IV ONE ×2 (14:30→21:00)
[2020-08-07] MEDS: DEXTROSE 5% 1,000 ML IV SCH ×2 (01:04→09:14)
[2020-08-07 06:26] LABS: Basophils # 0.1 10*3/uL (0.0-0.2); Basophils % 0.3 % (0.0-0.8); Eosinophils % 0.2 % (0.00-10.9); Hematocrit 35.5 VOL% (35.7-47.0); Immature Granulocytes % 1.3 %; Immature Granulocytes Absolute 0.32 #; Lymphocytes % 4.1 % (21.3-54.2); Mean Corpuscular HGB Conc 29.9 GM/DL (32-36); Mean Platelet Volume 9.5 FL (9.6-12.0); Monocytes % 4.6 % (1.7-12.7); Neutrophils % 89.5 % (38.7-73.9); Platelet Count 721 T/CUMM (130-400); Red Cell Distribution Width 15.3 % (9.3-17.3); White Blood Count 25.1 T/CUMM (4-12)
[2020-08-07 06:45] LABS: Albumin 1.5 G/DL (3.4-5.0); Bilirubin,Total 0.7 MG/DL (0.2-1.0); Calcium 8.7 MG/DL (8.5-10.1)
[2020-08-07 07:05] LABS: Red Blood Count 4.08 MC/CUMM (3.8-5.5)
[2020-08-07 07:06] LABS: Hemoglobin 10.6 GM/DL (12.0-16.0)
[2020-08-07 07:14] LABS: Band Neutrophils 2 % (0-10); Hypochromasia 1+; Lymphocytes 4 % (20-55); Microcytosis 1+; Platelet Estimate Increased; Segmented Neutrophils 89 % (50-85); Total Cells Counted 100
[2020-08-07] MEDS: SODIUM HYPOCHLORITE 0.25% IRRIG 473 ML BOTTLE TOP SCH (07:45)
[2020-08-07] MEDS: INSULIN GLARGINE 100 UNIT/ML SUBCUT SCH (09:13)
[2020-08-07] MEDS: INSULIN LISPRO 100 UNIT/ML SUBCUT SCH ×2 (09:13→12:07)
[2020-08-07] MEDS: cefTRIAXone 2,000 MG in SYRINGE 1 EACH IV SCH (09:14)
[2020-08-07] MEDS: POTASSIUM CHLORIDE 20 MEQ TABLET PO PRN (09:15)
[2020-08-07 12:17] VITALS: BP 171/65
== END 2020-08-07 15:05 | DRG 689 ==
LOC: N.ED 02:46 → N.EDINP 04:43 → N.5E 05:57
PROVIDERS: ADMIT Internal Medicine; ATTEND Internal Medicine